=== PATIENT | female | born 1995 | race Caucasian/White ===

== ENCOUNTER 2018-04-18 09:35 | Outpatient (CLI) | payer BC, MEDICAID ==
[~2018-04-18] VITALS: Ht 167.6 cm; Wt 78.5 kg
[~2018-04-18 09:35] MED LIST: CEPH500C PO; CPH250CIP PO; DCS100C PO; IBP600T1 PO; PREN-115 PO; [UNRECOGNIZED DRUG - OTHER] PO
[2018-04-18 09:45] VITALS: BP 103/63
[2018-04-18 10:13] VITALS: BP 103/63
[2018-04-18] MEDS ORDERED: LACTATED RINGERS 1,000 ML IV ONE (10:15)
[2018-04-18 10:36] VITALS: BP 103/63
[2018-04-18 10:50] VITALS: BP 103/63
--- NOTE | 2018-04-19 10:59 | Physician Query-Final Dx ---
TOBI DOWNING 04/19/18 1059: Clinic Account Progress/Dx Physician Query: Please give diagnosis Date of Service Apr 18, 2018 at 09:35 ZONIA ROJAS MD 04/20/18 0728: Clinic Account Progress/Dx DIAGNOSIS: Diagnosis 1. Dehydration 2. IUP at 13 weeks. TOBI DOWNING Apr 19, 2018 10:59 ZONIA ROJAS MD Apr 20, 2018 07:28
== END 2018-04-18 10:55 | disposition home or self-care (01) ==
LOC: WSo 09:35 → LDRP 09:35 → WSo 10:55
PROVIDERS: ATTEND Family Medicine
DX: O99.89 Other specified diseases and conditions complicating pregnancy, childbirth and the puerperium (principal); E86.0 Dehydration; Z3A.13 13 weeks gestation of pregnancy
CPT/HCPCS: 96360

== ENCOUNTER 2018-07-14 22:59 | Outpatient (CLI) | payer BC ==
[~2018-07-14] VITALS: Ht 160 cm; Wt 83.9 kg
[2018-07-14 23:16] VITALS: BP 138/72
[2018-07-14 23:25] LABS: BILIRUBIN,URINE NEGATIVE (NEGATIVE); CLARITY,URINE CLEAR; COLOR,URINE YELLOW; GLUCOSE, URINE (UA) NEGATIVE (NEGATIVE); KETONES,URINE NEGATIVE (NEGATIVE); LEUKOCYTE ESTERASE ,URINE NEGATIVE (NEGATIVE); NITRITE,URINE NEGATIVE (NEGATIVE); PH,URINE 6.5 (5-9); PROTEIN,URINE NEGATIVE (NEGATIVE); UROBILINOGEN,URINE NORMAL (NORMAL)
[2018-07-14 23:36] LABS: BACTERIA,URINE FEW /HPF; WBC,URINE RARE /HPF
[2018-07-14] MEDS ORDERED: AMOXICILLIN 500 MG (POLYMOX) CAP PO STA (23:50)
[2018-07-14] MEDS ORDERED: AMOX500T2 PO (23:57)
[2018-07-14] MEDS ORDERED: AMOXICILLIN 500 MG (POLYMOX) CAP PO ONE (23:58)
== END 2018-07-15 00:06 | disposition home or self-care (01) ==
LOC: WSo 22:59 → LDRP 22:59 → WSo 07-15 00:06
PROVIDERS: ATTEND Family Medicine
DX: O47.03 False labor before 37 completed weeks of gestation, third trimester (principal); Z3A.28 28 weeks gestation of pregnancy
CPT/HCPCS: 81000; 99213

== ENCOUNTER → 2018-08-07 | Outpatient (CLI) | payer BC ==
[~2018-08-07] MED LIST changes: +AMOX500T2 PO
== END ==
LOC: WSo 12:15
PROVIDERS: ATTEND Family Medicine
DX: Z31.82 Encounter for Rh incompatibility status (principal)
CPT/HCPCS: 96372

== ENCOUNTER 2018-09-04 09:18 | Outpatient (CLI) | payer BC, MEDICAID ==
[~2018-09-04] VITALS: Ht 167.6 cm; Wt 86.0 kg
[2018-09-04 09:35] VITALS: BP 112/71
[2018-09-04] MEDS ORDERED: PNV11TAB5 PO (10:01)
[2018-09-04 10:20] LABS: CLARITY,URINE CLEAR; COLOR,URINE YELLOW; GLUCOSE, URINE (UA) NEGATIVE (NEGATIVE); KETONES,URINE 2+ (NEGATIVE); LEUKOCYTE ESTERASE ,URINE 2+ (NEGATIVE); NITRITE,URINE NEGATIVE (NEGATIVE); PH,URINE 6 (5-9); PROTEIN,URINE 2+ (NEGATIVE); UROBILINOGEN,URINE NORMAL (NORMAL)
[2018-09-04] MEDS ORDERED: D5 LR IV SOLUTION 2,000 ML IV ONE (10:20)
[2018-09-04] MEDS ORDERED: BETAMETHASONE ACE/NA PHOS 6 MG/ML (CELESTONE SOLUSPAN) ONE (10:20)
[2018-09-04 10:21] LABS: BACTERIA,URINE MODERATE /HPF; BILIRUBIN,URINE 1+ (NEGATIVE); CALCIUM OXALATE CRYSTALS,UR FEW /LPF; WBC,URINE 25-50 /HPF
[2018-09-04] MEDS ORDERED: D5 LR IV SOLUTION 1,000 ML IV ONE (10:30)
[2018-09-04] MEDS ORDERED: BETAMETHASONE ACE/NA PHOS 6 MG/ML (CELESTONE SOLUSPAN) IM SCH (10:45)
[2018-09-04 10:50] LABS: BASOPHILS % (AUTO) 0 % (0-10); EOSINOPHILS % (AUTO) 0 % (0-10); HEMATOCRIT 33 % (35-52); LYMPHOCYTES # (AUTO) 3.3 X 10^3 (1.0-4.0); LYMPHOCYTES % (AUTO) 25 % (12-44); MEAN CORPUSCULAR HEMOGLOBIN 27 PG (25-34); MEAN CORPUSCULAR HGB CONC 34 G/DL (32-36); MEAN CORPUSCULAR VOLUME 80 FL (80-99); MEAN PLATELET VOLUME 10.1 FL (7.4-10.4); MONOCYTES # (AUTO) 1.5 X 10^3 (0.0-1.0); MONOCYTES % (AUTO) 11 % (0-12); NEUTROPHILS # (AUTO) 8.3 X 10^3 (1.8-7.8); NEUTROPHILS % (AUTO) 63 % (42-75); PLATELET COUNT 168 10^3/uL (130-400); RED BLOOD COUNT 4.09 10^6/uL (4.35-5.85); RED CELL DISTRIBUTION WIDTH 13.6 % (10.0-14.5); WHITE BLOOD COUNT 13.1 10^3/uL (4.3-11.0)
[2018-09-04] MEDS ORDERED: D5 LR IV SOLUTION 1,000 ML IV SCH (11:15)
[2018-09-04] MEDS ORDERED: morphine INJ 10 MG/ML 1ML (SYR OR VIAL) IJ ONE (11:45)
[2018-09-04] MEDS ORDERED: morphine INJ 10 MG/ML 1ML (SYR OR VIAL) ONE (11:45)
[2018-09-04] MEDS ORDERED: morphine INJ 10 MG/ML 1ML (SYR OR VIAL) IVP ONE (11:45)
[2018-09-04 12:00] VITALS: BP 140/74
--- NOTE | 2018-09-05 16:51 | Physician Query-Final Dx ---
MULUGETA CHAN 09/05/18 1651: Clinic Account Progress/Dx Physician Query: Please give diagnosis Date of Service Sep 04, 2018 at 09:18 ZONIA ROJAS MD 09/07/18 1350: Clinic Account Progress/Dx DIAGNOSIS: Diagnosis 1. IUP at 35 weeks 2. Uterine irritability, non-labor MULUGETA CHAN Sep 05, 2018 16:51 ZONIA ROJAS MD Sep 07, 2018 13:50
== END 2018-09-04 14:20 | disposition home or self-care (01) ==
LOC: WSo 09:18 → LDRP 09:18 → WSo 14:20
PROVIDERS: ATTEND Family Medicine
DX: O62.2 Other uterine inertia (principal); Z3A.35 35 weeks gestation of pregnancy
CPT/HCPCS: 36415; 81000; 85025; 86850; 86870; 86900; 86901; 87077; 87088; 87186; 96361; 96372; 96374; 99213

== ENCOUNTER 2018-09-23 18:01 | Inpatient (IN) | payer MEDICAID, OTHER ==
[2018-09-23] VITALS (34 sets, daily range): BP systolic 111–141; BP diastolic 59–94
[~2018-09-23] VITALS: Ht 167.6 cm; Wt 88.5 kg
[~2018-09-23 18:01] MED LIST changes: +PNV11TAB5 PO
--- NOTE | 2018-09-23 18:05 | NUR ---
MEERA LOVE presented to unit via wc from home, accompanied by , with c/o LABOR. MEERA LOVE weighed, gowned, voided, and to bed. EFHM and TOCO applied, VS taken. MEERA LOVE oriented to bed controls, call light, TV, heat, and A/C controls. Patient states has been cedrick today since about 3:30, has had some vaginal bleeding, enough to get underwear bloody. Has been on bedrest since about 18 weeks for labor per her report.
[2018-09-23] MEDS ORDERED: D5 LR IV SOLUTION 1,000 ML IV SCH (18:41)
[2018-09-23] MEDS ORDERED: MINERAL OIL CONCENTRATE 99.9% 15 ML UDC TOP PRN (18:45)
[2018-09-23 18:50] LABS: BASOPHILS % (AUTO) 0 % (0-10); EOSINOPHILS % (AUTO) 0 % (0-10); HEMATOCRIT 34 % (35-52); LYMPHOCYTES % (AUTO) 24 % (12-44); MEAN CORPUSCULAR HEMOGLOBIN 26 PG (25-34); MEAN CORPUSCULAR HGB CONC 32 G/DL (32-36); MEAN CORPUSCULAR VOLUME 80 FL (80-99); MEAN PLATELET VOLUME 10.7 FL (7.4-10.4); MONOCYTES # (AUTO) 1.2 X 10^3 (0.0-1.0); MONOCYTES % (AUTO) 9 % (0-12); NEUTROPHILS # (AUTO) 8.6 X 10^3 (1.8-7.8); NEUTROPHILS % (AUTO) 67 % (42-75); PLATELET COUNT 146 10^3/uL (130-400); RED BLOOD COUNT 4.27 10^6/uL (4.35-5.85); RED CELL DISTRIBUTION WIDTH 14.3 % (10.0-14.5); WHITE BLOOD COUNT 12.8 10^3/uL (4.3-11.0)
[2018-09-23] MEDS ORDERED: SUFENTA 0.6MCG/ML BUPIVA 0.125 100 ML ONE (19:03)
[2018-09-23] MEDS ORDERED: LACTATED RINGERS 1,000 ML IV SCH (20:06)
[2018-09-23] MEDS ORDERED: OXYTOCIN/NORMAL SALINE 500 ML IV ONE (20:11)
[2018-09-23] MEDS ORDERED: diphenhydrAMINE 50 MG/ML INJ (BENADRYL) IV PRN (20:15)
[2018-09-23] MEDS ORDERED: METOCLOPRAMIDE INJ 10 MG/2 ML (REGLAN) IV PRN (20:15)
[2018-09-23] MEDS ORDERED: EPIDURAL (SUFENTA 0.6MCG/ML BUPIVA 0.125%) 100 ML BAG EPI SCH (20:15)
[2018-09-23] MEDS ORDERED: ONDANSETRON 4 MG/2 ML (SDV) Z0FRAN IV PRN (20:15)
[2018-09-23] MEDS ORDERED: NALOXONE 0.4 MG/ML 1 ML (NARCAN) VIAL IV PRN ×2 (20:15)
[2018-09-23] MEDS ORDERED: OXYTOCIN/NORMAL SALINE 500 ML IV SCH ×2 (20:19→23:24)
--- NOTE | 2018-09-23 20:19 | History & Physical-OB ---
OB - Chief Complaint & HPI Date/Time Date of Admission: Date of Admission: Sep 23, 2018 at 18:33 Date seen by a Provider: Sep 23, 2018 Time Seen by a Provider: 20:10 Chief Complaint/History OB-Reason for Admission/Chief: Onset of Labor Hx : 2 Hx Para: 1 Expected Date of Delivery: Oct 09, 2018 Gestational Age in Weeks: 37 Gestational Age in Days: 5 Admission Nurse Assessment Rev: Yes History of Labs GBS negative at 33 weeks. Allergies and Home Medications Allergies Coded Allergies: latex (Verified Allergy, Unknown, 09/04/18) Home Medications [id number]/FA/Omega3/Dha/Fish Oil 1 Each Tab.chew, 2 EACH PO DAILY, (Reported) Patient Home Medication List Home Medication List Reviewed: Yes OB - History Hx of Present Care: Yes Ultrasounds: Normal mid trimester US Obstetrical Complications: Other ( contractions) Medical Complications: None Delivery History Hx Blood Disorders: No Adverse Rxn to Tranfusion: No Patient Past Medical History no chronic medical problems Social History/Family History HIV/AIDS: No Recent Infectious Disease Expo: No Sexually Transmitted Disease: No Alcohol Use: Denies Use Recreational Drug Use: No Immunizations Tetanus Booster (TDap): Less than 5yrs Date of Influenza Vaccine: Sep 12, 2018 OB - Admission Exam Physical Exam Vitals: Vital Signs 09/23/18 18:10 Temp 98.0 Pulse 96 Resp 18 B/P (MAP) 130/81 (97) HEENT: Moist Membranes Heart: Rhythm Normal Lungs: Clear Abdomen: Gravid Cervical Dilatation: 5cm Effacement: 75% Station: -3 Membranes: Ruptured (AROM) Amniotic Fluid: Clear Heart Rate: 140's Accelerations: Accelerations Present Decelerations: No Decelerations Short Term Variability: Present Long-Term Variability: Average (6-25) Contractions on Admission: < 5 Minutes Apart Intensity: Moderate Labs Laboratory Tests Test 09/23/18 18:41 Range/Units White Blood Count 12.8 H 4.3-11.0 10^3/uL Red Blood Count 4.27 L 4.35-5.85 10^6/uL Hemoglobin 11.0 L 11.5-16.0 G/DL Hematocrit 34 L 35-52 % Mean Corpuscular Volume 80 80-99 FL Mean Corpuscular Hemoglobin 26 25-34 PG Mean Corpuscular Hemoglobin Concent 32 32-36 G/DL Red Cell Distribution Width 14.3 10.0-14.5 % Platelet Count 146 130-400 10^3/uL Mean Platelet Volume 10.7 H 7.4-10.4 FL Neutrophils (%) (Auto) 67 42-75 % Lymphocytes (%) (Auto) 24 12-44 % Monocytes (%) (Auto) 9 0-12 % Eosinophils (%) (Auto) 0 0-10 % Basophils (%) (Auto) 0 0-10 % Neutrophils # (Auto) 8.6 H 1.8-7.8 X 10^3 Lymphocytes # (Auto) 3.0 1.0-4.0 X 10^3 Monocytes # (Auto) 1.2 H 0.0-1.0 X 10^3 Eosinophils # (Auto) 0.0 0.0-0.3 10^3/uL Basophils # (Auto) 0.0 0.0-0.1 10^3/uL OB - Assessment/Plan/Diagnosis Assessment Assessment: active labor (at 37w5d) Admission Dx 1. IUP at term 37w5d in labor Admission Status: Inpatient Order (span 2 midnights) Reason for Inpatient Admission: L&D Plan Plan: Expectant Management Other Plan -patient desires epidural and this has been placed -pitocin as necessary ZONIA ROJAS MD Sep 23, 2018 20:19
[2018-09-23] MEDS ORDERED: CATHETER FLUSH 10 ML SYR IV SCH (22:00)
[2018-09-23] MEDS ORDERED: MEPIVACAINE (CARBOCAINE) 2% 50 ML VIAL ONE (22:39)
--- NOTE | 2018-09-23 23:23 | OB Labor & Delivery Record ---
L&D History Date of Service Date of Service: Sep 23, 2018 History Expected Date of Delivery: Oct 09, 2018 Gestational Age in Weeks: 37 Hx : 2 Hx Para: 1 Complications Events: Routine care Operative Indications (Cesarea: N/A-Vaginal Delivery Intrapartal Events: None L&D Stage1 Stage One Onset of Labor - Date: Sep 23, 2018 Onset of Labor - Time: 15:00 Monitors and Tracing Monitor Mode: Internal Heart Rate: 120 Monitor Accelerations: Uniform Monitor Decelerations: None Station: -1 Halfway Variability: Average (6-10) Short Term Variability: Present Presentation: Vertex Vital Signs VS - Last 72 Hours, by Label 09/23/18 09/23/18 09/23/18 09/23/18 18:10 19:15 19:20 19:25 Temp 98.0 Pulse 96 87 90 103 Resp 18 18 18 18 B/P (MAP) 130/81 (97) 111/71 (84) 140/75 (96) 137/78 (97) Pulse Ox 100 100 09/23/18 09/23/18 09/23/18 09/23/18 19:30 19:35 19:40 19:45 Pulse 90 82 82 87 Resp 18 18 18 18 B/P (MAP) 135/77 (96) 137/80 (99) 130/80 (97) 127/67 (87) Pulse Ox 100 100 100 100 09/23/18 09/23/18 09/23/18 09/23/18 19:50 19:55 20:00 20:05 Pulse 82 89 89 86 Resp 18 18 18 18 B/P (MAP) 129/66 (87) 116/59 (78) 129/75 (93) 123/74 (90) Pulse Ox 100 100 100 100 09/23/18 09/23/18 09/23/18 09/23/18 20:10 20:15 20:20 20:25 Pulse 103 82 82 86 Resp 18 18 18 18 B/P (MAP) 122/94 (103) 141/63 (89) 121/69 (86) 121/67 (85) Pulse Ox 100 100 100 100 09/23/18 09/23/18 09/23/18 09/23/18 20:30 20:35 20:40 20:45 Pulse 96 83 83 76 Resp 18 18 18 18 B/P (MAP) 116/71 (86) 128/80 (96) 130/74 (92) 131/70 (90) Pulse Ox 100 100 100 100 09/23/18 09/23/18 09/23/18 09/23/18 20:50 20:55 21:00 21:15 Pulse 82 75 75 83 Resp 18 18 18 18 B/P (MAP) 125/73 (90) 130/76 (94) 132/76 (94) 133/71 (91) Pulse Ox 100 100 100 100 09/23/18 09/23/18 09/23/18 09/23/18 21:30 21:45 22:00 22:20 Temp 97.0 Pulse 93 100 88 87 Resp 18 18 18 18 B/P (MAP) 129/79 (96) 119/67 (84) 127/78 (94) 129/77 (94) Pulse Ox 100 100 100 100 Signs of Distress by FHT Signs of Distress no Rupture of Membranes Spontaneous Ruture of Membrane: No Amniotic Membrane Rupture Time: 2008 Amniotic Membrane Fluid Desc.: Clear Induction/Anesthesia Epidural Cath Placement - Time: 1932 L&D Stage2 Stage Two Stage II Date: Sep 23, 2018 Stage II Time: 22:59 Monitors and Tracing Monitor Mode: Internal Heart Rate: 120 Monitor Accelerations: Uniform Monitor Decelerations: Early Halfway Variability: Average (6-10) Short Term Variability: Present Position: Left Occiput Anterior Presentation: Vertex Signs of Distress by FHT Signs of Distress no Cord Descript/Complications Cord Vessel Description: 3 Vessels Delivery Type Infant Delivery Method: Spontaneous Vaginal Anterior Shoulder: Left Episiotomy/Perineal Laceration Episiotomy Description: Midline Sutures Used: Vicryl Condition of Delivery 1 minute Comment: 9 5 minute Comment: 9 Condition of Infant Condition of Infant: Living Exam: No Observed Abnormalities Resuscitation Resuscitation: N/A - Spontaneous Resp L&D Stage3 Stage Three Stage III Date: Sep 23, 2018 Stage III Time: 23:04 Pictocin Pitocin Administration mu/min: 6 Pitocin ml/hr: 6 Placenta Delivery Placenta Delivery: Spontaneous Delivery Summary Summary Estimated blood loss (mL): 200 Condition of Delivery Examined: Cervix Examined Post Hemorrhage: No Intervention Required none ZONIA ROJAS MD Sep 23, 2018 23:23
[2018-09-23] MEDS ORDERED: BENZOCAINE/MENTHOL (DERMOPLAST) 56 ML CAN TP PRN (23:30)
[2018-09-23] MEDS ORDERED: MEASLES,MUMPS,RUBELLA 1 EA INJ SQ ONE (23:30)
[2018-09-23] MEDS ORDERED: TETANUS,DIPTH,PERTUSS P/F (BOOSTRIX) 0.5 ML VIAL IM ONE (23:30)
[2018-09-24] VITALS (7 sets, daily range): BP systolic 93–127; BP diastolic 49–76
[2018-09-24] MEDS: IBUPROFEN 600 MG (MOTRIN) TAB PO SCH ×4 (00:13→18:22)
[2018-09-24] MEDS: DOCUSATE SODIUM 100 MG (COLACE) CAP PO SCH (00:34)
--- NOTE | 2018-09-24 02:06 | NUR ---
pt placed in w'c and taken to 312. pt denies urge to void. pt assisted to bed. orientated to room. info papers discussed. pt denies any needs at this time. s/o at bedside.
--- NOTE | 2018-09-24 04:00 | NUR ---
Pt assisted to the bathroom. positive void. pericare completed. pad changed. pt assisted back to bed.
[2018-09-24] MEDS: HYDROcodone/APAP 5 MG/325 MG (LORTAB) TAB PO PRN ×3 (05:20→20:06)
[2018-09-24] MEDS: WITCH HAZEL(TUCKS) 40 EA JAR TOP PRN (05:20)
[2018-09-24 05:39] LABS: BASOPHILS % (AUTO) 0 % (0-10); EOSINOPHILS # (AUTO) 0.1 10^3/uL (0.0-0.3); EOSINOPHILS % (AUTO) 0 % (0-10); HEMATOCRIT 27 % (35-52); HEMOGLOBIN 8.9 G/DL (11.5-16.0); LYMPHOCYTES % (AUTO) 23 % (12-44); MEAN CORPUSCULAR HEMOGLOBIN 26 PG (25-34); MEAN CORPUSCULAR HGB CONC 33 G/DL (32-36); MEAN CORPUSCULAR VOLUME 80 FL (80-99); MEAN PLATELET VOLUME 10.7 FL (7.4-10.4); MONOCYTES % (AUTO) 11 % (0-12); NEUTROPHILS # (AUTO) 11.3 X 10^3 (1.8-7.8); NEUTROPHILS % (AUTO) 65 % (42-75); PLATELET COUNT 131 10^3/uL (130-400); RED CELL DISTRIBUTION WIDTH 14.4 % (10.0-14.5); WHITE BLOOD COUNT 17.3 10^3/uL (4.3-11.0)
[2018-09-24] MEDS ORDERED: CATHETER FLUSH 10 ML SYR IV SCH (06:00)
--- NOTE | 2018-09-24 07:00 | NUR ---
REPORT FROM AMBROSIO LORD.
--- NOTE | 2018-09-24 08:30 | NUR ---
INITIAL ASSESSMENT COMPLETED AT BEDSIDE, VSS, SEE INTERVENTIONS FOR DETAILED ASSESSMENTS, PLAN OF CARE EXPLAINED WILL MONITOR CLOSELY.
--- NOTE | 2018-09-24 08:55 | NUR ---
DR LANGSTON HERE NEW ORDERS RECEIVED.
--- NOTE | 2018-09-24 09:40 | NUR ---
IV DC'D PER PT REQUEST.
--- NOTE | 2018-09-24 11:45 | NUR ---
SCHEDULED MOTRIN GIVEN PO FOR CRAMPING.
--- NOTE | 2018-09-24 13:51 | Anesthesia-Regional Post-Op ---
Regional Patient Condition Mental Status: Alert, Oriented x3 Circulation: Same as Pre-Op Headache: Absent Sensation: Full Recovery Motor Block: Absent Post Op Complications Complications None Follow Up Care/Instructions Patient Instructions None needed. Anesthesia/Patient Condition Patient is doing well, no complaints, stable vital signs, no apparent adverse anesthesia problems. No complications reported per nursing. AUGUSTUS CHOU CRNA Sep 24, 2018 13:50
--- NOTE | 2018-09-24 15:36 | NUR ---
VSS, PT C/O CRAMPING, LORTAB X 1 TABLET GIVEN PO.
--- NOTE | 2018-09-24 16:25 | Progress Note (SOAP) ---
Subjective Date Seen by a Provider: Sep 24, 2018 Time Seen by a Provider: 16:15 Subjective/Events-last exam Patient voices no complaints. Having mild cramping and helped with ibuprofen and lortab. No abnormal vaginal bleeding. Objective Exam Vital Signs Date Time Temp Pulse Resp B/P (MAP) Pulse Ox O2 Delivery O2 Flow Rate FiO2 09/24/18 08:30 98.9 85 18 98/55 (69) 98 Room Air 09/24/18 03:52 97.3 81 18 93/49 (64) 100 09/24/18 00:50 97.1 70 18 121/64 (83) 100 09/24/18 00:35 85 18 122/75 (91) 100 09/24/18 00:20 73 18 127/76 (93) 100 09/24/18 00:05 97.0 75 18 127/76 (93) 100 09/23/18 23:50 77 18 123/86 (98) 100 09/23/18 23:35 89 18 125/76 (92) 100 09/23/18 23:20 88 18 135/68 (90) 100 09/23/18 23:05 91 18 138/63 (88) 100 09/23/18 22:50 80 18 139/82 (101) 100 09/23/18 22:35 90 18 138/77 (97) 100 09/23/18 22:20 97.0 87 18 129/77 (94) 100 09/23/18 22:00 88 18 127/78 (94) 100 09/23/18 21:45 100 18 119/67 (84) 100 09/23/18 21:30 93 18 129/79 (96) 100 09/23/18 21:15 83 18 133/71 (91) 100 09/23/18 21:00 75 18 132/76 (94) 100 09/23/18 20:55 75 18 130/76 (94) 100 09/23/18 20:50 82 18 125/73 (90) 100 09/23/18 20:45 76 18 131/70 (90) 100 09/23/18 20:40 83 18 130/74 (92) 100 09/23/18 20:35 83 18 128/80 (96) 100 09/23/18 20:30 96 18 116/71 (86) 100 09/23/18 20:25 86 18 121/67 (85) 100 09/23/18 20:20 82 18 121/69 (86) 100 09/23/18 20:15 82 18 141/63 (89) 100 09/23/18 20:10 103 18 122/94 (103) 100 09/23/18 20:05 86 18 123/74 (90) 100 09/23/18 20:00 89 18 129/75 (93) 100 09/23/18 19:55 89 18 116/59 (78) 100 09/23/18 19:50 82 18 129/66 (87) 100 09/23/18 19:45 87 18 127/67 (87) 100 09/23/18 19:40 82 18 130/80 (97) 100 09/23/18 19:35 82 18 137/80 (99) 100 09/23/18 19:30 90 18 135/77 (96) 100 09/23/18 19:25 103 18 137/78 (97) 100 09/23/18 19:20 90 18 140/75 (96) 100 09/23/18 19:15 87 18 111/71 (84) 09/23/18 18:10 98.0 96 18 130/81 (97) Capillary Refill : General Appearance: No Apparent Distress Results Lab Laboratory Tests 09/23/18 18:41: White Blood Count 12.8H, Red Blood Count 4.27L, Hemoglobin 11.0L, Hematocrit 34L , Mean Corpuscular Volume 80, Mean Corpuscular Hemoglobin 26, Mean Corpuscular Hemoglobin Concent 32, Red Cell Distribution Width 14.3, Platelet Count 146, Mean Platelet Volume 10.7H, Neutrophils (%) (Auto) 67, Lymphocytes (%) (Auto) 24 , Monocytes (%) (Auto) 9, Eosinophils (%) (Auto) 0, Basophils (%) (Auto) 0, Neutrophils # (Auto) 8.6H, Lymphocytes # (Auto) 3.0, Monocytes # (Auto) 1.2H, Eosinophils # (Auto) 0.0, Basophils # (Auto) 0.0 09/24/18 05:20: White Blood Count 17.3H, Red Blood Count 3.40L, Hemoglobin 8.9L, Hematocrit 27L , Mean Corpuscular Volume 80, Mean Corpuscular Hemoglobin 26, Mean Corpuscular Hemoglobin Concent 33, Red Cell Distribution Width 14.4, Platelet Count 131, Mean Platelet Volume 10.7H, Neutrophils (%) (Auto) 65, Lymphocytes (%) (Auto) 23 , Monocytes (%) (Auto) 11, Eosinophils (%) (Auto) 0, Basophils (%) (Auto) 0, Neutrophils # (Auto) 11.3H, Lymphocytes # (Auto) 4.0, Monocytes # (Auto) 2.0H, Eosinophils # (Auto) 0.1, Basophils # (Auto) 0.0 Assessment/Plan Assessment/Plan Assess & Plan/Chief Complaint 1. S/P day 1 -Routine PP care orders -Plan on dc on 09/25/2018 Clinical Quality Measures DVT/VTE Risk/Contraindication: Risk Factor Score Per Nursin RFS Level Per Nursing on Admit: 1=Low/No VTE PPX ZONIA ROJAS MD Sep 24, 2018 16:25
[2018-09-25] MEDS ORDERED: DOCUSATE SODIUM 100 MG (COLACE) CAP PO ONE (00:27)
[2018-09-25 00:32] VITALS: BP 115/56
[2018-09-25 05:40] VITALS: BP 117/77
[2018-09-25] MEDS: IBUPROFEN 600 MG (MOTRIN) TAB PO SCH ×3 (05:41→19:42)
--- NOTE | 2018-09-25 09:10 | NUR ---
PT IN NURSERY TO HOLD AND FEED INFANT.
[2018-09-25] MEDS: DOCUSATE SODIUM 100 MG (COLACE) CAP PO SCH (09:43)
[2018-09-25] MEDS ORDERED: TETANUS,DIPTH,PERTUSS P/F (BOOSTRIX) 0.5 ML VIAL IM ONE (09:46)
[2018-09-25] MEDS: HYDROcodone/APAP 5 MG/325 MG (LORTAB) TAB PO PRN ×2 (09:52→17:42)
--- NOTE | 2018-09-25 09:53 | NUR ---
TDAP GIVEN IN LEFT DELTOID. SITE CLEAR. IN NURSERY AT THIS TIME. GOOD INTERACTION NOTED. LORTAB GIVEN FOR C/O CRAMPING AND SORE BOTTOM.
[2018-09-25 12:00] VITALS: BP 115/63
--- NOTE | 2018-09-25 12:00 | NUR ---
DOING WELL. IN THE NURSERY AT INTERVALS.
[2018-09-25] MEDS ORDERED: DIBUCAINE (NUPERCAINAL) 1% OINT 30 GM ONE (12:45)
[2018-09-25] MEDS ORDERED: DIBUCAINE (NUPERCAINAL) 1% OINT 30 GM TOP PRN (13:00)
--- NOTE | 2018-09-25 14:53 | Discharge Summary ---
Diagnosis/Chief Complaint Date of Admission Sep 23, 2018 at 18:33 Date of Discharge Discharge Date: Sep 25, 2018 Discharge Time: 15:00 Admission Diagnosis Admission Diagnosis 1. IUP at 37w5d Discharge Diagnosis 1. IUP at 37w5d 2. Anemia-post delivery Reason Hospital Visit 23 yo G2 now T2 who initially presented to L&D with uterine contractions with full labor. EDC was mpted tp be on Oct 09, 2018. Discharge Summary-OBS Procedures 1. Epidural per anesthesia 2. 3. Repair of MLE Discharge Physical Examination Allergies: Coded Allergies: latex (Verified Allergy, Unknown, 09/04/18) Vitals & I&Os Vital Signs Date Time Temp Pulse Resp B/P (MAP) Pulse Ox O2 Delivery O2 Flow Rate FiO2 09/25/18 05:40 98.9 78 20 117/77 (90) 98 Room Air General Appearance: No Acute Distress Respiratory: Clear to Auscultation Cardiovascular: Regular Rate Abdominal: Soft (with uterus firm) Hospital Course see PN Discharge Instructions to patient/family Please see electronic discharge instructions given to patient. Discharge Medications Reviewed and agree with Discharge Medication list on patient's Discharge Instruction sheet Clinical Quality Measures DVT/VTE Risk/Contraindication: Risk Factor Score Per Nursin RFS Level Per Nursing on Admit: 1=Low/No VTE PPX ZONIA ROJAS MD Sep 25, 2018 14:53
[2018-09-25] MEDS ORDERED: ACHD5005 PO (14:54)
[2018-09-25] MEDS ORDERED: DOCU100C37 PO (14:54)
[2018-09-25] MEDS ORDERED: IBUP-844 PO (14:54)
--- NOTE | 2018-09-25 14:57 | Discharge Inst-Women's Service ---
Discharge Inst-Women's Serv Depart Medication/Instructions New, Converted or Re-Newed RX: RX on Chart Consults/Follow Up Additional Follow Up: Yes (Dr Rojas in 6 weeks.) Activity Activity: Activity as Tolerated Driving Instructions: No Driving for 1 Week Nothing Inside Vagina: No [place] (for 6 weeks.) Diet Discharge Diet: Regular Diet Return to The Hospital For: as below Symptoms to Report to : Bleeding Excessive, Fever Over 101 Degrees F, Urination Difficulty, Vaginal Discharge Foul For Any Problems or Questions: Contact Your Physician ZONIA ROJAS MD Sep 25, 2018 14:56
--- NOTE | 2018-09-25 15:00 | NUR ---
DR. ROJAS HERE TO SEE PT. PLAN FOR ROOMING IN AFTER RECEIVES RHOGAM. RXS GIVEN TO S.O. TO SEE IF ANY PHARMACY AVAILABLE.
[2018-09-25] MEDS: WITCH HAZEL(TUCKS) 40 EA JAR TOP PRN (17:42)
[2018-09-25 19:30] VITALS: BP 118/76
--- NOTE | 2018-09-25 19:50 | NUR ---
RHOGAM GIVEN IM IN RIGHT VG SITE. SITE CLEAR.
--- NOTE | 2018-09-25 21:00 | NUR ---
Pt. remains in [facility] visiting .
--- NOTE | 2018-09-25 22:20 | NUR ---
Pt. just arrived back to from [facility], D/C instructions given & explained, pt. verbalized understanding & signed. POC reviewed & boarder status w/pt & SO, both verbalized understanding & very appreciative, pt. denies needs. Pt. previously received & had slate picker Rx, has in her possession. Will D/C pt. to in as still admitted in [facility].
== END 2018-09-25 22:20 | disposition home or self-care (01) | DRG 807 ==
LOC: WSo 18:01 → LDRP 18:01 → WSo 18:33 → LDRP 09-24 05:30
PROVIDERS: ADMIT Family Medicine; ATTEND Family Medicine
PROC: 10E0XZZ Delivery of Products of Conception, External Approach (ICD-10-PCS; principal; 2018-09-23)
PROC: 0W8NXZZ Division of Female Perineum, External Approach (ICD-10-PCS; 2018-09-23)
DX: O90.81 Anemia of the puerperium (principal); D64.9 Anemia, unspecified; Z37.0 Single live birth; Z3A.37 37 weeks gestation of pregnancy
CPT/HCPCS: 36415; 83033; 85025; 86850; 86900; 86901; 90715; 99212

== ENCOUNTER 2020-01-03 23:21 | Emergency (ER) | payer SELFPAY ==
[~2020-01-03] VITALS: Ht 167 cm; Wt 79.0 kg
[~2020-01-03 23:21] MED LIST changes: +ACHD5005 PO; +DOCU100C37 PO; +IBUP-844 PO
--- OUTSIDE RECORDS SUMMARY | 2020-01-03 23:28 | XMS REPORT ---
Author Author [employer]. Organization [facility] Address [address] [address] Care Team Providers Care Ic Design Engineer Name Role Phone JOHN WIGGINS Unavailable Unavailable [facility] Unavailable [phone] ODALIS LANGSTON Unavailable EILEEN MANLEY Unavailable Unavailable XAVIER GUERRA Unavailable Unavailable ALISHA ENCINAS Unavailable Unavailable HILDA BONE Unavailable Unavailable SCHUYLER DE LA VEGA Unavailable Unavailable TRAE BRITT Unavailable Unavailable NAHUN ROJAS Unavailable [facility] Unavailable TACOS DWYER Unavailable TACOS DWYER Unavailable NAHUN ROJAS Unavailable NAHUN ROJAS MD Unavailable Unavailable NAHUN ROJAS MD Unavailable Unavailable AMADA SOSA MD Unavailable Unavailable AMADA SOSA MD Unavailable Unavailable SHANNON BROWN DO Unavailable Unavailable ANIRUDH ALVAREZ Unavailable Unavailable ROLLY SIN, KAT Tamayo Unavailable Unavailable NAHUN ROJAS Unavailable Migration, Doctor Unavailable Unavailable KAYLA ERWIN MD Unavailable Unavailable Migration, Doctor Unavailable Unavailable LAURENCE FERNÁNDEZ Unavailable Migration, Doctor Unavailable Unavailable zzHEIMAN, TRAE Unavailable zzHEIMAN, TRAE Unavailable zzHEIMAN, TRAE Unavailable Allergies Normalized Allergy Reported Date of Reaction(s) Care Provider Facility Allergy Type classification allergen Allergy Onset DA (20 Unclassified No Known Drug 11-05-2012 - no information KAT LOFTON , Not Available sources.) Allergies (53903) Medications Medication Ingredient Drug Dose Dates Status Sig Sig Care Class(es) (Normalized) (Original) Provid er no Acetaminoph Opioid 09-25-19 Complete take 1 Acetaminophe Nahun information en / Agonist 19 d tablet by n/Hydrocodon J (1 source.) HYDROcodone mouth every e Bitart Didier four hours (Hydrocodone (no as needed /Acetaminoph phone) for pain en 5/325MG Tablet) 1 Tab Tab 1 Tab ORAL Every 4HRS as needed for Pain-Moderat e 20 Tab 09/25/18 no Bladder Inf no 02-13-20 Complete take 1 Bladder Inf ( no information Med , 1 Tab information 13 d tablet by Med , 1 Tab phone) (3 Oral mouth three Oral Three sources.) times daily Times A Day Discontinued no Cephalexin no 05-07-20 Complete no Cephalexin (no information Hcl (Keflex information 13 d information Hc l (Keflex phone) (3 Capsule) Capsule) 250 sources.) 250 Mg Cap, Mg Cap, 500 500 Mg Oral Mg Oral Discontinued no Cephalexin no 05-10-20 Complete take 500 Cephalexin G retch information Monohydrate information 13 - d capsules by Mo nohydrate en L (3 (Cephalexin 06-05-20 mouth three (Cephalexin) [place] in sources.) ) 500 Mg 16 times daily 500 Mg (no Capsule, 1 Capsule, 1 phone) Each Oral Each Oral Three Times A Day 05/10/13 Discontinued no Docusate no 05-08-20 Complete take 1 Docusate Nahun information Sodium information 13 - d capsule by Sodium J (3 (Colace 06-05-20 mouth twice (Colace Didier sources.) Capsule) 16 daily Capsule) 100 (no 100 Mg Cap, Mg Cap, 100 phone) 100 Mg Oral Mg Oral Twice A Day 05/08/13 Discontinued no Ibuprofen no 600 mg 05-08-20 Complete take 1 Ibuprofe n Nahun information (Motrin) information 13 - d tablet by (Motrin ) 600 J (3 600 Mg Tab, 06-05-20 mouth every Mg Tab, 600 Didier sources.) 600 Mg Oral 16 six hours Mg Oral (no Every 6 phone) Hours 05/08/13 Discontinued no [id number]/Fa/O no Complete take 2 Lur854/Fa/Om (n o information mega3/Dha/F information d tablets by ega3/D vail/Fis phone) (1 source.) martine Oil mouth once h Oil ( daily, then ( Gummies) 1 take 1 Gummies) 1 Each tablet by Each Tab.chew mouth Tab.chew 2 Each ORAL Daily no no 06-05-20 Complete no Vit (no information Vit information 16 d information #108/Ir on/Fa phone) (3 #108/Iron/F ( sources.) a ( One Tablet) One Tablet) 1 Each 1 Each Tablet, 1 Tablet, 1 Each Oral Each Oral Daily Discontinued Problems Active Problems Problem Normalized Date of Normalized Normalized Provider Fac ility Classification Problem(s) Problem Problem Problem Sta tus Onset/Resoluti Duration on Other Anemia of the Chronic Active NAHUN ROJAS , Not Available complications puerperium (60014) of ; puerperium affecting management of mother (4 sources.) Deficiency and Anemia, Episodic Active NAHUN ROJAS , Not Available other anemia unspecified (23468) (4 sources.) Other Congenital or Episodic Active KAT LOFTON , Not Available complications acquired MD (08773) of abnormality of (3 sources.) vagina, antepartum condition or complication Fluid and Dehydration Episodic Active AMADA SOSA Not Av ailable electrolyte , (49516) disorders (8 sources.) Residual Edema Episodic Active ANIRUDH Not Available codes; FRANKI MOON (67441) unclassified (3 sources.) Early or False labor Episodic Active KAYLA ERWIN Not Av ailable threatened before 37 , (82740) labor (8 completed sources.) weeks of gestation, third trimester Other Infections of Episodic Active NAHUN ROJAS , Not Available complications genitourinary (56852) of tract in (3 sources.) , antepartum condition or complication Other Infections of Episodic Active ANIRUDH Not Avai lable complications genitourinary FRANKI MOON (22516) of ; tract in puerperium , affecting management of condition or mother (3 complication sources.) Residual Need for Episodic Active NAHUN ROJAS , Not Avai lable codes; prophylactic (66881) unclassified immunotherapy (6 sources.) Immunizations Need for Episodic Active NAHUN ROJAS , Not Available and screening prophylactic MD (99366) for infectious vaccination disease (3 and sources.) inoculation against diphtheria-tet anus-pertussis , combined [DTP] [DTaP] Other Normal Episodic Active NAHUN ROJAS , Not Avai lable and delivery (13391) delivery Translations: including [ normal (9 DELIVER-SINGLE sources.) LIVEBORN, SINGLE LIVE ] Other female Other Chronic Active AMADA SOSA Not Av ailable genital specified , (62717) disorders (4 abnormal sources.) uterine and vaginal bleeding Other Other Episodic Active NAHUN ROJAS , Not Avai lable complications specified () of complications (3 sources.) of , antepartum condition or complication Other Other Episodic Active ANIRUDH Not Available complications specified FRANKI MOON (51185) of ; complications puerperium of , affecting management of condition or mother (3 complication sources.) Other Other Episodic Active NAHUN ROJAS , Not Avai lable complications specified (70448) of diseases and (10 sources.) conditions complicating , childbirth and the puerperium Other female Other Episodic Active KAT LOFTON , Not A vailable genital specified (55276) disorders (3 noninflammator sources.) y disorders of vagina distress Other uterine Episodic Active NAHUN ROJAS , Not Available and abnormal inertia (80555) forces of labor (2 sources.) Other Swelling of Episodic Active ANIRUDH Not Availa ble connective limb FRANKI MOON (23544) tissue disease (3 sources.) Other female Unspecified Episodic Active KAT LFOTON , No t Available genital symptom (03573) disorders (5 associated sources.) with female genital organs Urinary tract Urinary tract Episodic Active NAHUN ROJAS , Not Available infections (6 infection, (25255) sources.) site not specified Other Uterine size Episodic Active NAHUN ROJAS , Not Available complications date (96241) of discrepancy, (5 sources.) antepartum condition or complication Unclassified no information no information Active NAHUN GONZALEZ [facility] [place] (13 sources.) [id number] [facility] (79579) Past or Other Problems Problem Normalized Date of Normalized Normalized Provider Fac ility Classification Problem(s) Problem Problem Problem Sta tus Onset/Resoluti Duration on Unclassified 13 weeks no information no information NAHUN CANNON N , Not Available (4 sources.) gestation of () Unclassified 19 weeks no information no information KAYLA GRUBBS CH Not Available (10 sources.) gestation of , (82197) Translations: [ 28 WEEKS GESTATION OF ] Residual 28 weeks no information no information KAYLA ERWIN [facility] Via codes; gestation of MD [facility] unclassified Hospital - (4 sources.) [place] (64838) Residual 35 weeks no information no information NAHUN ROJAS , Not Available codes; gestation of (79515) unclassified (2 sources.) Residual 37 weeks no information no information NAHUN ROJAS , Not Available codes; gestation of (75634) unclassified (4 sources.) Abdominal pain Pelvic and no information no information KAYLA ERWIN Not Available (6 sources.) perineal pain , (96576) Procedures Procedure Normalized Procedure Procedure Result Performer Facility Date DELIVERY OF PRODUCTS no information no name (no phone) Not A vailable (61139) OF CONCEPTION, EXTE DIVISION OF FEMALE no information no name (no phone) Not [place] ilable (98819) PERINEUM, EXTERNAL AP Episiotomy no information no name (no phone) Not Availab le (95520) Other genitourinary no information no name (no phone) Not Av ailable (22019) instillation Immunizations Normalized Immunization Date Notes Care Provider Facili ty Immunization NEGATED: Highlighted 09-24-2018 no information NAHUN ROJAS [address] [place] [address] row has not [facility] occurred! (43741) measles, mumps and rubella virus vaccine tetanus toxoid, 09-25-2018 - no information no name Not Av ailable reduced diphtheria 09-25-2018 (98543) toxoid, and acellular pertussis vaccine, adsorbed vaccine no information NAHUN ROJAS [address] [address] [facility] Translations: [ [place] (86127) vaccine] Results Test Name Value Interpretation Reference Range Date Time Fa cility (Normalized) (Normalized) (Medline Reference) No panel information on null no information no information (no code) Via [facility] (31215) venous blood hemoglobin measurement (mass/volume) on 2018-09-24 Hemoglobin mass 8.9 g/dL (L) 12.1 - 17.2 g/dL [facility] Via conc (Bld) [facility] (31806) blood neutrophils automated count (number/volume) on 2018-09-24 Neutrophils Auto 11.3 10*3/uL (H) 1.7 - 7 10*3/uL [facility] Via #/vol (Bld) [facility] (15388) blood monocytes/100 leukocytes on 2018-09-24 Monocytes/100 11 % (no code) 2 - 8 % [place] [facility] WBC Auto (Bld) [facility] (51121) blood monocytes automated count (number/volume) on 2018-09-24 Monocytes Auto 2.0 10*3/uL (H) 0.3 - 0.9 [place] [facility] #/vol (Bld) 10*3/uL [facility] (94459) blood lymphocytes automated count (number/volume) on 2018-09-24 Lymphocytes Auto 4.0 10*3/uL (no code) 0.9 - 2.9 [place] [facility] #/vol (Bld) 10*3/uL [facility] (95146) blood leukocytes automated count (number/volume) on 2018-09-24 WBC Auto #/vol 17.3 10*3/uL (H) 3.5 - 10.5 [place] [facility] (Bld) 10*3/uL [facility] (53083) blood hematocrit (volume fraction) on 2018-09-24 Hematocrit Auto 27 % (L) 36.1 - 50.3 % [facility] Volume Fraction [facility] ([facility]) (28192) blood erythrocytes automated count (number/volume) on 2018-09-24 RBC Auto #/vol 3.40 10*6/uL (L) 4.2 - 6.1 [place] [facility] (Bld) 10*6/uL [facility] (37997) automated erythrocyte mean corpuscular volume on 2018-09-24 MCV Auto Entitic 80 fL (no code) 80 - 100 fL [facility] volume (RBC) [facility] (79603) automated erythrocyte mean corpuscular hemoglobin concentration measurement (mass/volume) on 2018-09-24 MCHC Auto mass 33 g/dL (no code) 32 - 36 g/dL [place] [facility] conc (RBC) [facility] (98249) automated erythrocyte mean corpuscular hemoglobin (mass per erythrocyte) on 2018-09-24 MCH Auto Entitic 26 pg (no code) 27 - 31 pg [place] [facility] mass (RBC) [facility] (50116) automated erythrocyte distribution width ratio on 2018-09-24 Erythrocyte 14.4 % (no code) 11.6 - 14.6 % [place] [facility] distribution [facility] width Auto Ratio (99984) (RBC) automated eosinophil count on 2018-09-24 Eosinophils Auto 0.1 10*3/uL (no code) 0.05 - 0.5 [place] [facility] #/vol (Bld) 10*3/uL [facility] (47692) automated blood platelet mean volume measurement on 2018-09-24 Platelet mean 10.7 fL (H) 7.2 - 11.7 fL [place] [facility] volume Auto [facility] Entitic volume (54487) (Bld) automated blood platelet count (count/volume) on 2018-09-24 Platelets Auto 131 10*3/uL (no code) 150 - 450 [place] [facility] #/vol (Bld) 10*3/uL [facility] (07334) automated blood neutrophils/100 leukocytes on 2018-09-24 Neutrophils/100 65 % (no code) 40 - 60 % [place] [facility] WBC Auto (d) [facility] (57193) automated blood lymphocytes/100 leukocytes on 2018-09-24 Lymphocytes/100 23 % (no code) 20 - 40 % [place] [facility] WBC Auto (d) [facility] (25370) automated blood eosinophils/100 leukocytes on 2018-09-24 Eosinophils/100 0 % (no code) 1 - 4 % [place] [facility] WBC Auto (d) [facility] (77944) automated blood basophils/100 leukocytes on 2018-09-24 Basophils/100 0 % (no code) 0.5 - 1 % [place] [facility] WBC Auto (d) [facility] (26634) automated blood basophil count (count/volume) on 2018-09-24 Basophils Auto 0.0 10*3/uL (no code) 0 - 0.3 10*3/uL [facility] #/vol (Bld) [facility] (77624) urine urobilinogen measurement by automated test strip (mass/volume) on 2018-09-04 Urobilinogen NORMAL (no code) [place] [facility] Test strip Qn [facility] (U) (32716) urine total bilirubin detection by test strip on 2018-09-04 Bilirubin Ql (U) 1+ (*) [place] [facility] (53565) urine protein assay by test strip, semi-quantitativ e on 2018-09-04 Protein Test 2+ (*) [place] [facility] strip Ql (U) [facility] (31395) urine ph measurement by test strip on 2018-09-04 pH Test strip 6 [pH] (no code) 4.6 - 8 [pH] [place] [facility] (U) [facility] (47741) urine nitrite detection by test strip on 2018-09-04 Nitrite Test no information (no code) [place] [facility] strip Ql (U) [facility] (01065) urine leukocyte esterase detection by dipstick on 2018-09-04 Leukocyte 2+ (*) [place] [facility] esterase Test [facility] strip Ql (U) (55305) urine ketones detection by automated test strip on 2018-09-04 Ketones 2+ (*) [place] [facility] Automated test [facility] strip Ql (U) (83811) urine glucose detection by automated test strip on 2018-09-04 Glucose no information (no code) [place] [facility] Automated test [facility] strip Ql (U) (98955) urine color determination on 2018-09-04 Color Nom (U) YELLOW (no code) [place] [facility] (90216) urine clarity determination on 2018-09-04 Clarity Nom (U) CLEAR (no code) [place] [facility] (11352) squamous epithelial cells detection in urine sediment by light microscopy on 2018-09-04 Epithelial no information (*) [place] [facility] cells.squamous [facility] LM Ql (Urine (12438) sed) specific gravity of urine by test strip on 2018-09-04 Specific gravity 1.025 (*) [place] [facility] Relative Density [facility] (U) (95872) mucus detection in urine sediment by light microscopy on 2018-09-04 Mucus LM Ql SMALL (*) [place] [facility] (Urine sed) [facility] (93353) erythrocytes detection in urine sediment by light microscopy on 2018-09-04 RBC LM Ql (Urine 1+ (*) [place] [facility] sed) [facility] (57118) crystals detection in urine sediment by light microscopy on 2018-09-04 Crystals LM Ql PRESENT (*) [place] [facility] (Urine sed) [facility] (52830) complete urinalysis with reflex to culture on 2018-09-04 Urinalysis YES (no code) [place] [facility] complete W [facility] Reflex Culture (02832) panel - Urine casts detection in urine sediment by light microscopy on 2018-09-04 Casts LM Ql NONE (no code) [place] [facility] (Urine sed) [facility] (08678) calcium oxalate crystals detection in urine sediment by light microscopy on 2018-09-04 Calcium oxalate FEW (*) [place] [facility] crystals LM Ql [facility] (Urine sed) (49239) bacterial urine culture on 2018-09-04 Bacteria Organism: (no code) [place] [facility] identified Cx Staphylococcus [facility] Nom (U) epidermidis (09868) bacteria detection in urine sediment by light microscopy on 2018-09-04 Bacteria LM Ql MODERATE (*) [place] [facility] (Urine sed) [facility] (99728) automated urine sediment leukocyte count by microscopy (number/high power field) on 2018-09-04 WBC LM.HPF no information (*) [place] [facility] #/area (Urine [facility] sed) (05222) automated urine sediment erythrocyte count by microscopy (number/high power field) on 2018-09-04 RBC LM.HPF no information (*) [place] [facility] #/area (Urine [facility] sed) (50667) urine urobilinogen measurement by automated test strip (mass/volume) on 2018-07-15 Urobilinogen NORMAL (no code) Via [facility] Test strip [facility]38433[facility] urine total bilirubin detection by test strip on 2018-07-15 Bilirubin (U) no information (no code) Via [facility] (95189) urine protein assay by test strip, semi-quantitativ e on 2018-07-15 Protein Test no information (no code) Via [facility] strip ([facility] (94155) urine ph measurement by test strip on 2018-07-15 pH Test strip 6.5 [pH] (no code) 4.6 - 8 [pH] Via [facility] ([facility] (35733) urine nitrite detection by test strip on 2018-07-15 Nitrite Test no information (no code) Via [facility] strip ([facility] (57344) urine ketones detection by automated test strip on 2018-07-15 Ketones no information (no code) Via [facility] Automated test Hospital strip ([facility] (46928) urine glucose detection by automated test strip on 2018-07-15 Glucose no information (no code) Via [facility] Automated test Hospital strip Ql (U) [place] (09570) urine color determination on 2018-07-15 Color Nom (U) YELLOW (no code) Via [facility] (10369) urine clarity determination on 2018-07-15 Clarity Nom (U) CLEAR (no code) Via [facility] (85556) squamous epithelial cells detection in urine sediment by light microscopy on 2018-07-15 Epithelial no information (no code) Via [facility] cells.squamous Hospital LM Ql (Urine [place] sed) (49637) specific gravity of urine by test strip on 2018-07-15 Specific gravity 1.020 (no code) Via [facility] Relative Density Hospital (U) [place] (50740) mucus detection in urine sediment by light microscopy on 2018-07-15 Mucus LM Ql MODERATE (*) Via [facility] (Urine sed) [facility] (68852) leukocyte esterase on 2018-07-15 Leukocyte no information (no code) Via [facility] esterase Test Hospital strip Ql (U) [place] (78757) erythrocytes detection in urine sediment by light microscopy on 2018-07-15 RBC LM Ql (Urine no information (no code) Via [facility]) [facility] (37854) crystals detection in urine sediment by light microscopy on 2018-07-15 Crystals LM Ql NONE (no code) Via [facility] (Urine sed) [facility] (09359) complete urinalysis with reflex to culture on 2018-07-15 Urinalysis NO (no code) Via [facility] Reflex Culture [place] panel - Urine (55967) casts detection in urine sediment by light microscopy on 2018-07-15 Casts LM Ql NONE (no code) Via [facility] (Urine sed) [facility] (00834) bacteria detection in urine sediment by light microscopy on 2018-07-15 Bacteria LM Ql FEW (*) Via [facility] (Urine sed) [facility] (01759) automated urine sediment leukocyte count by microscopy (number/high power field) on 2018-07-15 WBC LM.HPF RARE (no code) Via [facility] #/area (Urine Hospital sed) [place] (50421) automated urine sediment erythrocyte count by microscopy (number/high power field) on 2018-07-15 RBC LM.HPF NONE (no code) Via [facility] #/area (Urine Hospital sed) [place] (04478) Vital Signs The data below is from unstructured sources Vital Response Date/Time Temperature (Fahrenheit) 97.6 degree s F (97.6 - 99.5) 06/05/2016 12:00pm Temperature (Calculated Celsius) 36. 42517 degrees C (36.4 - 37.5) 06/05/2016 12:00pm Temperature Source Tympanic 06/05/2016 12:00pm Pulse Rate (adult) 88 bpm (60 - 90) 06/05/2016 12:00pm Respiratory Rate 16 bpm (12 - 24) 06/05/2016 12:00pm O2 Sat by Pulse Oximetry 98 % (88 - 100) 06/05/2016 12:00pm Blood Pressure 117/63 mm Hg 06/05/2016 12:00pm Blood Pressure Mean 81 mm Hg 06/05/2016 12:00pm Pain Numeric Pain Scale 3 12:00pm Height (Feet) 5 feet 07/2016 1:00am Height (Inches) 7.00 inches 06/05/2016 1:00am Height (Calculated Centimeters) 170. 607969 cm 06/05/2016 1:00am Weight (Pounds) 174 pounds 06/05/2016 1:00am Weight (Ounces) 0.0 oz 0 06/05/2016 1:00am Weight (Calculated Grams) 35675.07 gm 06/05/2016 1:00am Weight (Calculated Kilograms) 78.925 073 kilograms 06/05/2016 1:00am Calculated BMI 27.3 05/26 1:00am Capillary Refill Capillary Refill Less Than 3 Seconds 06/04/2016 7:33pm Vital Response Date/Time Temperature (Fahrenheit) 97.1 degree s F (97.6 - 99.5) Temperature (Calculated Celsius) 36. 35005 degrees C (36.4 - 37.5) Temperature Source Temporal Pulse Rate (adult) 84 bpm (60 - 90) Respiratory Rate 18 bpm (12 - 24) O2 Sat by Pulse Oximetry 99 % (88 - 100) Blood Pressure 130/72 mm Hg Pain Pain Intensity 7 Height (Feet) 5 feet Height (Inches) 7 inches Height (Calculated Centimeters) 170. 104159 cm Weight (Pounds) 150 pounds Weight (Calculated Grams) 06817.997 gm Weight (Calculated Kilograms) 68.038 856 kilograms Calculated BMI 23.49 Vital Response Date/Time Temperature (Fahrenheit) 98.7 degree s F (97.6 - 99.5) 04/18/2018 10:50am Temperature (Calculated Celsius) 37. 94891 degrees C (36.4 - 37.5) 04/18/2018 10:13am Temperature Source Temporal 04/18/2018 10:50am Pulse Rate (adult) 76 bpm (60 - 90) 04/18/2018 10:50am Respiratory Rate 20 bpm (12 - 24) 04/18/2018 10:50am Blood Pressure 103/63 mm Hg 04/18/2018 10:50am Blood Pressure Mean 76 mm Hg (65 - 110) 04/18/2018 10:50am Pain Numeric Pain Scale 0-No Pain 04/18/2018 10:50am Height (Feet) 5 feet 10:50am Height (Inches) 6.00 inches 04/18/2018 10:50am Height (Calculated Centimeters) 167. 218155 cm 04/18/2018 10:50am Weight (Pounds) 173 pounds 04/18/2018 10:50am Weight (Ounces) 0.6 oz 0 04/18/2018 10:50am Weight (Calculated Grams) 32278.491 gm 04/18/2018 10:50am Weight (Calculated Kilograms) 78.488 491 kilograms 04/18/2018 10:50am Height 5 ft 6 in 018 9:45am Weight 173.04 lb 018 9:45am Body Mass Index 27.9 kg/m^2 04/18/2018 10:50am Vital Response Date/Time Temperature (Fahrenheit) 98.3 degree s F (97.6 - 99.5) 07/14/2018 11:16pm Temperature (Calculated Celsius) 36. 83262 degrees C (36.4 - 37.5) 07/14/2018 11:16pm Temperature Source Tympanic 07/14/2018 11:16pm Pulse Rate (adult) 93 bpm (60 - 90) 07/14/2018 11:16pm Respiratory Rate 20 bpm (12 - 24) 07/14/2018 11:16pm Blood Pressure 138/72 mm Hg 07/14/2018 11:16pm Blood Pressure Mean 94 mm Hg (65 - 110) 07/14/2018 11:16pm Pain Numeric Pain Scale 6 11:22pm Height (Feet) 5 feet 11:34pm Height (Inches) 3.00 inches 07/14/2018 11:34pm Height (Calculated Centimeters) 160. 596751 cm 07/14/2018 11:34pm Weight (Pounds) 185 pounds 07/14/2018 11:34pm Weight (Ounces) 0.0 oz 1 11:34pm Weight (Calculated Grams) 83882.59 gm 07/14/2018 11:34pm Weight (Calculated Kilograms) 83.914 589 kilograms 07/14/2018 11:34pm Calculated BMI 32.8 06/26 11:34pm Weight Measurement Method Standing Scale 07/14/2018 11:34pm Vital Response Date/Time Temperature (Fahrenheit) 98.6 degree s F (97.6 - 99.5) 09/25/2018 7:30pm Temperature (Calculated Celsius) 37. 50750 degrees C (36.4 - 37.5) 09/25/2018 7:30pm Temperature Source Temporal 09/25/2018 7:30pm Pulse Rate (adult) 93 bpm (60 - 90) 09/25/2018 7:30pm Respiratory Rate 18 bpm (12 - 24) 09/25/2018 7:30pm O2 Sat by Pulse Oximetry 99 % (88 - 100) 09/25/2018 7:30pm Blood Pressure 118/76 mm Hg 09/25/2018 7:30pm Blood Pressure Mean 90 mm Hg (65 - 110) 09/25/2018 7:30pm Pain Numeric Pain Scale 0-No Pain 09/25/2018 10:20pm Faces Pain Scale 0 08/27 8:26pm Height (Feet) 5 feet 6:25pm Height (Inches) 6.00 inches 09/23/2018 6:25pm Height (Calculated Centimeters) 167. 300209 cm 09/23/2018 6:25pm Weight (Pounds) 195 pounds 09/23/2018 6:25pm Weight (Ounces) 0.0 oz 1 6:25pm Weight (Calculated Grams) 14359.51 gm 09/23/2018 6:25pm Weight (Calculated Kilograms) 88.450 513 kilograms 09/23/2018 6:25pm Calculated BMI 31.5 08/27 6:25pm Weight Measurement Method Standing Scale 09/04/2018 9:50am Interventions No Information Plan of Treatment The data below is from unstructured sources Discharge Date 06/05/16 1:40pm Disposition 01 HOME, SELF-CARE Instructions/Education Provided Acut e Abdominal Pain (ED) Chronic Pelvic Pain in Women (DC) Prescriptions See Medication Section Care Plan and Goals See Discharge In structions Section Activity Details Follow Up prn Reason: Discharge Date 04/18/18 10:55am Instructions/Education Provided OB O UTPATIENT DISCHARGE Dehydration Prescriptions See Medication Section Discharge Date 07/15/18 12:06am Instructions/Education Provided OB O UTPATIENT DISCHARGE Prescriptions See Medication Section Discharge Date 09/25/18 10:20pm

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
--- OUTSIDE RECORDS SUMMARY | 2020-01-03 23:29 | XMS REPORT ---
Author Author Bull ENCINAS Organization [employer] Address Unknown Phone Unavailable Care Team Providers Care Beauty School Instructor Name Role Phone ALISHA ENCINAS CP Unavailable Allergies, Adverse Reactions, Alerts Substance Reaction Event Type Latex rash Drug Allergy Problems Problem Type Condition Code Onset Dates Condition Statu s Assessment Encounter for gynecological examination Z01.419 Active Assessment Screening breast examination Z12.39 Active Problem Encounter for gynecological examination Z01.419 Active Problem Screening breast examination Z12.39 Active Problem General counseling and advice for contraceptive manage ment Z30.09 Active Problem Anxiety F41.9 Active Assessment General counseling and advice for contraceptive manage ment Z30.09 Active Problem History of migraine Z86.69 Active Problem Surveillance of contraceptive injection Z30.42 Active Medications No Known Medications Procedures Procedure Coding System Code Date SPECIMEN HANDLING CPT-4 61184 January 19, 2016 DEPO PROVERA (150 MG/ML) CPT-4 J1050 December 252015 URINE TEST CPT-4 78222 January 18, 016 Office Visit, Est Pt., Level 4 CPT-4 32718 A pril 2015 THER/PROPH/DIAG INJ, SC/IM CPT-4 34376 January 19, 2016 Vital Signs Date/Time: January 19, 2016 Temperature 98.6 F Weight 168.1 lbs Height 69 in BMI 24.82 Index Blood Pressure Diastolic 64 mmHg Blood Pressure Systolic 118 mmHg Cardiac Monitoring Heart Rate 88 bpm Results No Known Results Summary Purpose eClinicalWorks Submission
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
--- OUTSIDE RECORDS SUMMARY | 2020-01-03 23:29 | XMS REPORT ---
Author Author Bull DWYER Organization [facility] Address [address] [place] [address] Care Team Providers Care Braid Folder Name Role Phone TACOS DWYER Unavailable PROBLEMS Type Condition ICD9-CM Code SAC99-JO Code Onset Dates Condition S tatus SNOMED Code Problem Surveillance of contraceptive injection Z30.42 Active 527270881 Problem Screening breast examination Z12.39 A ctive 983736698 Problem History of migraine Z86.69 Active 069308421 Problem Anxiety F41.9 Active 53509407 Problem Acne vulgaris L70.0 Active 464906 00 Problem Weight gain R63.5 Active 8996061 Problem Encounter for gynecological examination Z01.419 Active 811627152 Problem General counseling and advice for contraceptive management Z30.09 Active 04982956 Problem Routine health maintenance Z00.00 Act amber 305154614 Problem Overweight (BMI 25.0-29.9) E66.3 Act amber [id number] ALLERGIES Substance Reaction Event Type Date Status Latex rash Drug Allergy Sep, Active SOCIAL HISTORY No smoking Hx information available PLAN OF CARE Activity Details Follow Up prn Reason: VITAL SIGNS Height 69 in 2016-09-29 Weight 175 lbs 2016-09-29 Temperature 97.7 degrees Fahrenheit 2016-09-29 Heart Rate 82 bpm 2016-09-29 Respiratory Rate 22 2016-09-29 BMI 25.84 kg/m2 2016-09-29 Blood pressure systolic 148 mmHg 2016-09-29 Blood pressure diastolic 76 mmHg 2016-09-29 MEDICATIONS Medication Instructions Dosage Frequency Start Date End Date Duration S tatus Fluticasone Propionate 50 MCG/ACT Nasally Once a day 1 spray in each nostril 24h Sep, 30 day(s) Active Augmentin 875-125 MG Orally every 12 hrs 1 tablet 12h Sep, 2 017 15 Sep, 2016 10 day(s) Active Zyrtec Allergy 10 MG Orally Once a day 1 tablet 24h 05 Sep, 201 7 4 Oct, 2016 30 day(s) Active RESULTS No Results PROCEDURES Procedure Date Ordered Related Diagnosis Body Site DEPO MEDROL 40 MG/ML Sep 29, 2016 THER/PROPH/DIAG INJ, SC/IM Sep 29, 2016 Office Visit, Est Pt., Level 3 Sep 29, 2016 DEXAMETHASONE 4MG/ML (PER 1 MG) Sep 29, 2016 IMMUNIZATIONS Vaccine Route Administration Date Status DEXAMETHASONE 4MG/ML (PER 1 MG) IM Intramuscular Sep 29, 2016 Administered DEPO MEDROL 40 MG/ML IM Intramuscular Sep 29, 2016 Administer ed
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
--- OUTSIDE RECORDS SUMMARY | 2020-01-03 23:29 | XMS REPORT ---
Author Author Bull GUERRA [facility] eClinicalWorks Address Unknown Phone Unavailable Care Team Providers Care Budget Officer Name Role Phone XAVIER GUERRA CP Unavailable Allergies, Adverse Reactions, Alerts Substance Reaction Event Type Latex rash Drug Allergy Problems Problem Type Condition Code Onset Dates Condition Statu s Assessment Anxiety F41.9 Active Assessment History of head injury Z87.828 Activ e Assessment Migraine headache G43.909 Active Problem Migraine headache G43.909 Active Problem Anxiety F41.9 Active Problem History of head injury Z87.828 Activ e Problem Influenza with other respiratory manifestations 487.1 Active Problem General counseling for prescription of oral contracept kathie V25.01 Active Problem Migraine headache 346.90 Active Problem Unspecified contraceptive management V25.9 Active Medications Medication Code System Code Instructions Start Date End Date Status Dosage Topamax [facility] [address]-38 50 MG Orally Twice a day May 12, 2015 1 tablet Lexapro [facility] [address]-86 10 MG Orally Once a day Jul 22, 2015 1 tablet HydrOXYzine HCl [facility] [address]-70 25 MG Orally anabel ry 8 hrs as needed for anxiety and nausea Jul 22, 2015 1 tablet as need ed Procedures Procedure Coding System Code Date Office Visit, Est Pt., Level 3 CPT-[address] 2014 Vital Signs Date/Time: Jul 22, 2015 Temperature 98.6 F Weight 161.3 lbs Height 69 in BMI 23.82 Index Blood Pressure Diastolic 64 mmHg Blood Pressure Systolic 112 mmHg Cardiac Monitoring Heart Rate 84 bpm Results No Known Results Summary Purpose eClinicalWorks Submission
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
--- OUTSIDE RECORDS SUMMARY | 2020-01-03 23:29 | XMS REPORT ---
Author Author Bull WIGGINS Organization eClinicalWorks Address Unknown Phone Unavailable Care Team Providers Care Lime Puller Name Role Phone JOHN WIGGINS CP Unavailable Allergies No Known Allergies Problems Problem Type Condition Code Onset Dates Condition Statu s Problem Anxiety F41.9 Active Problem History of migraine Z86.69 Active Problem Surveillance of contraceptive injection Z30.42 Active Problem Acne vulgaris L70.0 Active Problem Weight gain R63.5 Active Problem Routine health maintenance Z00.00 A ctive Problem Encounter for gynecological examination Z01.419 Active Problem Screening breast examination Z12.39 Active Problem Overweight (BMI 25.0-29.9) E66.3 A ctive Problem General counseling and advice for contraceptive manage ment Z30.09 Active Medications No Known Medications Results No Known Results Summary Purpose eClinicalWorks Submission
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
--- OUTSIDE RECORDS SUMMARY | 2020-01-03 23:29 | XMS REPORT ---
Author Bull Gallegos Organization eClinicalWorks Address Unknown Phone Unavailable Care Team Providers Care Cloth Burler Name Role Phone EILEEN MANLEY CP Unavailable Allergies No Known Allergies Problems Problem Type Condition Code Onset Dates Condition Statu s Problem Surveillance of contraceptive injection Z30.42 Active Problem Anxiety F41.9 Active Problem History of migraine Z86.69 Active Assessment Anxiety F41.9 Active Medications No Known Medications Procedures Procedure Coding System Code Date Psychotherapy, patient &/family, 30 minutes, established patient CPT-4 49180 Sep 22, 2015 Results No Known Results Summary Purpose eClinicalWorks Submission
--- OUTSIDE RECORDS SUMMARY | 2020-01-03 23:29 | XMS REPORT ---
Author Bull Sena [facility] eClinicalWorks Address Unknown Phone Unavailable Care Team Providers Care Carpet Yarn Winder Operator Name Role Phone SCHUYLER DE LA VEGA CP Unavailable Allergies, Adverse Reactions, Alerts Substance Reaction Event Type N.K.D.A. Info Not Available Non Drug Allergy Problems Problem Type Condition ICD-9 Code Onset Dates Condition Statu s Problem Unspecified contraceptive management V25.9 Active Problem Influenza with other respiratory manifestations 487.1 Active Problem Migraine headache 346.90 Active Problem General counseling for prescription of oral contracept kathie V25.01 Active Assessment Cough 786.2 Active Medications Medication Code System Code Instructions Start Date End Date Status Dosage Sudafed [facility] [address]-89 30 MG Orally every 6 hrs pr n nasal congestion Jun 08, 2015 1 tablet as needed Amoxicillin [facility] [address]-66 500 MG Orally every 12 hrs 1 tablet Azithromycin [facility] [address]-75 250 MG Orally Once a day May 262014Jun 13, 2015 2 tablets on the first day, then 1 tablet daily for 4 days Topamax [facility] [address]-79 50 MG Orally Twice a day May 12, 2015 1/2 tab daily x 7 days, 1/2 tab bid x7 days, 1/2 tab in AM, 1 tab HS x7days, then 1 tab bid Antipyrine-Benzocaine [facility] [address]-03 5.4-1.4 % Otic Three times a day 1 drop affected ear canal into affected ear Procedures Procedure Coding System Code Date Office Visit, Est Pt., Level 3 CPT-4 12830 S ept 2014 Vital Signs Date/Time: Jun 08, 2015 Temperature 98.4 F Weight 160.6 lbs Height 69 in BMI 23.71 Index Blood Pressure Diastolic 64 mmHg Blood Pressure Systolic 120 mmHg Cardiac Monitoring Heart Rate 88 bpm Results No Known Results Summary Purpose eClinicalWorks Submission
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
--- OUTSIDE RECORDS SUMMARY | 2020-01-03 23:29 | XMS REPORT ---
Author Author Bull WIGGINS [facility] eClinicalWorks Address Unknown Phone Unavailable Care Team Providers Care Tax Accounting Manager Name Role Phone JOHN WIGGINS CP Unavailable Allergies, Adverse Reactions, Alerts Substance [...] advice for contraceptive manage ment Z30.09 Active Assessment Overweight (BMI 25.0-29.9) E66.3 A ctive Assessment Weight gain R63.5 Active Assessment Acne vulgaris L70.0 Active Assessment Routine health maintenance Z00.00 A ctive Medications Medication Code System Code Instructions Start Date End Date Status Dosage Depo-Provera [facility] [address]-35 150 MG/ML Intramuscular once 1 ml Cleocin-T [facility] [address]-47 1 % Externally Twice a day April 07, 2016 Apply thin layer to face once a day for one week then apply thin layer to face twice daily Procedures Procedure Coding System Code Date GLYCATED HEMOGLOBIN TEST CPT-4 40147 March COMPLETE CBC W/AUTO DIFF WBC CPT-4 65000 Mar y 2015 Office Visit, Est Pt., Level 3 CPT-4 07483 J yue 2015 VENIPUNCT, ROUTINE* CPT-4 95096 April 07, 6 ASSAY OF INSULIN CPT-4 20665 April 07, 2016 COMPREHEN METABOLIC PANEL CPT-4 18132 March 252015 ASSAY THYROID STIM HORMONE CPT-4 93613 April 07, 2016 LIPID PANEL CPT-4 03846 April 07, 2016 Vital Signs Date/Time: April 07, 2016 Cardiac Monitoring Heart Rate 84 bpm Weight 174.5 lbs Height 69 in Blood Pressure Diastolic 72 mmHg Blood Pressure Systolic 118 mmHg Results No Known Results Summary Purpose eClinicalWorks Submission
--- OUTSIDE RECORDS SUMMARY | 2020-01-03 23:29 | XMS REPORT ---
Author Bull Sena Organization eClinicalWorks Address Unknown Phone Unavailable Care Team Providers Care Lawn Service Supervisor Name Role Phone SCHUYLER DE LA VEGA CP Unavailable Allergies No Known Allergies Problems Problem Type Condition ICD-9 Code Onset Dates Condition Statu s Problem Unspecified contraceptive management V25.9 Active Problem Influenza with other respiratory manifestations 487.1 Active Problem Migraine headache 346.90 Active Problem General counseling for prescription of oral contracept kathie V25.01 Active Medications No Known Medications Results No Known Results Summary Purpose eClinicalWorks Submission
--- OUTSIDE RECORDS SUMMARY | 2020-01-03 23:29 | XMS REPORT ---
Author Author Bull Friedman Organization [facility] Address [address] [place] [address] Care Team Providers Care Utilization Engineer Name Role Phone TRAE Friedman Unavailable PROBLEMS Type Condition ICD9-CM Code [id number] Code Onset Dates Condition S tatus SNOMED Code Problem Surveillance of contraceptive injection Z30.42 Active 015060709 Problem History of migraine Z86.69 Active 119731023 Problem Screening breast examination Z12.39 A ctive 610892426 Problem Weight gain R63.5 Active 6573741 Problem Anxiety F41.9 Active 90823832 Problem Acne vulgaris L70.0 Active 762091 00 Problem General counseling and advice for contraceptive management Z30.09 Active 90379030 Problem Encounter for gynecological examination Z01.419 Active 708954122 Problem Overweight (BMI 25.0-29.9) E66.3 Act amber 625771945 Problem Routine health maintenance Z00.00 Act amber [id number] ALLERGIES No Information ENCOUNTERS Encounter Location Date Diagnosis [facility] [address] [facility] [id number] [address] [place] [phone] 16 Oct, 2017 Viral illness B34.9 [facility] [address] [facility] [id number] [address] [place] [phone] 05 Sep, 2016 Acute non-recurrent maxillar y sinusitis J01.00 [facility] [address] [facility] [id number] [address] [place] [phone] 12 May, 2016 control counseling Z30 .9 [facility] [address] [facility] [id number] [address] [place] [phone] 12 Apr, 2016 [facility] [address] [facility] [id number] [address] [place] [phone] Mar, [facility] [address] [address] 14 Mar, 2016 Routine health maintenance Z 00.00 ; Acne vulgaris L70.0 ; Weight gain R63.5 and Overweight (BMI 25.0-29.9) E66.[address] [id number] 13 Mar, 2016 Encounter for Depo-Provera c ontraception Z30.[address] [address] 03 January, 2016 Adjustment disorder with mix ed anxiety and depressed mood F43.[address] [address] 26 Dec, 2015 General counseling and advic e for contraceptive management Z30.09 ; Encounter for gynecological examination Z01.419 and Screening breast examination Z12.[address] [id number] 08 Nov, 2015 Upper respiratory infection J06.[address] [address] Aug, Anxiety F41.[address] [address] 29 Aug, 2015 Anxiety F41.9 [facility] [address] [place] [id number] [address] [place] [phone] Aug, Abdominal pain, acute R10.9 ; Generalized anxiety disorder F41.1 and Acute stress reaction F43.[address] [address] 16 Jul, 2015 Surveillance of contraceptiv e injection Z30.42 ; Encounter for Depo-Provera contraception Z30.42 ; Amenorrhea due to Depo Provera N91.2 and Unprotected sexual intercourse Z72.51 [place] [id number] [address] [place] [phone] 28 Jun, 2015 History of head injury Z87.8 28 ; Migraine headache G43.909 and Anxiety F41.9 [facility] [address] [facility] [id number] [address] [place] [phone] Jun, Anxiety F41.9 [facility] [address] [place] [id number] [address] [place] [phone] 28 May, 2015 Migraine headache 346.90 and Folliculitis 704.8 [facility] [address] [place] [id number] [place] [phone] 16 May, 2015 [facility] [address] [place] [id number] [place] [phone] 14 May, 2015 Cough 786.2 [facility] [address] [place] [id number] [place] [phone] 24 Apr, 2015 Initiation of Depo Provera V 25.02 [facility] [address] [address] Apr, Migraine headache 346.90 [facility] [address] [place] [id number] [place] [phone] Apr, Migraine 346.90 [facility] [address] [address] Mar, Migraine 346.90 and Anxiety 300.00 [facility] [address] [address] Dec, [facility] [address] [place] [id number] [address] [place] [phone] Dec, [facility] [address] [place] [id number] [address] [place] [phone] Nov, [facility] [address] [place] [id number] [place] [phone] Nov, [facility] [address] [place] [id number] [address] [place] [phone] Oct, [facility] [address] [id number] 16 Oct, 2014 [facility] [address] [id number] [address] [place] [phone] Oct, [facility] [address] [id number] [address] [place] [phone] Oct, [facility] [address] [id number] [address] [place] [phone] May, [facility] [address] [id number] [address] [place] [phone] May, [facility] [address] [id number] [address] [place] [phone] Apr, [facility] [address] [id number] [address] [place] [phone] Apr, [facility] [address] [id number] [address] [place] [phone] Oct, [facility] [address] [id number] [address] [place] [phone] Jun, [facility] [address] [id number] [address] [place] [phone] Jun, [facility] [address] [id number] [address] [place] [phone] Aug, IMMUNIZATIONS No Known Immunizations SOCIAL HISTORY [...]
--- OUTSIDE RECORDS SUMMARY | 2020-01-03 23:30 | XMS REPORT ---
Author Author Bull WIGGINS Organization [employer] Address Unknown Phone Unavailable Care Team Providers Care Electronic Scale Subassembler Name Role Phone JOHN WIGGINS CP Unavailable [...]
--- OUTSIDE RECORDS SUMMARY | 2020-01-03 23:30 | XMS REPORT ---
Author Bull Billings Organization [employer] Address Unknown Phone Unavailable Care Team Providers Care Axminster Weaver Name Role Phone ALISHA ENCINAS CP Unavailable Allergies No Known Allergies Problems Problem Type Condition Code Onset Dates Condition Statu s Problem Encounter for gynecological examination Z01.419 Active Problem Screening breast examination Z12.39 Active Problem General counseling and advice for contraceptive manage ment Z30.09 Active Problem Anxiety F41.9 Active Assessment Encounter for Depo-Provera contraception Z30.42 Active Problem History of migraine Z86.69 Active Problem Surveillance of contraceptive injection Z30.42 Active Medications No Known Medications Procedures Procedure Coding System Code Date DEPO PROVERA (150 MG/ML) CPT-4 J1050 March THER/PROPH/DIAG INJ, SC/IM CPT-4 27003 April 06, 2016 URINE TEST CPT-4 09237 April 06 16 Results No Known Results Summary Purpose [employer] Submission
--- OUTSIDE RECORDS SUMMARY | 2020-01-03 23:30 | XMS REPORT ---
Author Author Bull BONE [facility] [employer] Address Unknown Phone Unavailable Care Team Providers Care Newscast Director Name Role Phone HILDA BONE CP Unavailable Allergies, Adverse Reactions, Alerts Substance Reaction Event Type Latex rash Drug Allergy Problems Problem Type Condition Code Onset Dates Condition Statu s Problem Surveillance of contraceptive injection Z30.42 Active Problem Anxiety F41.9 Active Problem History of migraine Z86.69 Active Assessment Amenorrhea due to Depo Provera N91.2 Active Assessment Unprotected sexual intercourse Z72.51 Active Assessment Surveillance of contraceptive injection Z30.42 Active Assessment Encounter for Depo-Provera contraception Z30.42 Active Medications Medication Code System Code Instructions Start Date End Date Status Dosage Topamax [facility] [address]-74 50 MG Orally Twice a day May 12, 2015 1 tablet Depo-Provera [facility] [address]-56 150 MG/ML Intramuscular once 1 ml Lexapro [facility] [address]-42 10 MG Orally Once a day Jul 22, 2015 1 tablet Procedures Procedure Coding System Code Date Office Visit, Est Pt., Level 3 CPT-4 32739 N 2014 No Charge CPT-4 29389 Aug 10, 2015 URINE TEST CPT-4 97632 Aug 10, 201 5 THER/PROPH/DIAG INJ, SC/IM CPT-4 05791 Jul 262014 DEPO PROVERA (150 MG/ML) CPT-4 J1050 Aug 10, 2015 Vital Signs Date/Time: Aug 10, 2015 Temperature 98.1 F Weight 154.9 lbs Height 69 in BMI 22.87 Index Blood Pressure Diastolic 62 mmHg Blood Pressure Systolic 104 mmHg Cardiac Monitoring Heart Rate 84 bpm Results Name Result Date Reference Range Unit Abnormali ty Flag TEST, URINE (IN HOUSE) Summary Purpose [employer] Submission
--- OUTSIDE RECORDS SUMMARY | 2020-01-03 23:30 | XMS REPORT ---
Author Author Bull LANGSTON [facility] Address [address] [place] [address] Care Team Providers Care Dough Machine Operator Name Role Phone ODALIS LANGSTON Unavailable PROBLEMS Type Condition ICD9-CM Code [id number] Code Onset Dates Condition S tatus SNOMED Code Problem Surveillance of contraceptive injection Z30.42 Active 454977521 Problem Screening breast examination Z12.39 A ctive 226973771 Problem History of migraine Z86.69 Active 293084077 Assessment control counseling Z30.9 12 May, 2016 A ctive 44994971 Problem Anxiety F41.9 Active 11316789 Problem Routine health maintenance Z00.00 Act amber 271380951 Problem Acne vulgaris L70.0 Active 621695 00 Problem General counseling and advice for contraceptive management Z30.09 Active 59287098 Problem Encounter for gynecological examination Z01.419 Active 371769870 Problem Weight gain R63.5 Active 4923870 Problem Overweight (BMI 25.0-29.9) E66.3 Act amber 900533979 ALLERGIES Substance Reaction Event Type Date Status Latex rash Drug Allergy 12 May, 2016 Active SOCIAL HISTORY No smoking Hx information available PLAN OF CARE VITAL SIGNS Height 69 in 2016-06-06 Weight 174.6 lbs 2016-06-06 Heart Rate 82 bpm 2016-06-06 Respiratory Rate 20 2016-06-06 BMI 25.78 kg/m2 2016-06-06 Blood pressure systolic 132 mmHg 2016-06-06 Blood pressure diastolic 71 mmHg 2016-06-06 MEDICATIONS Medication Instructions Dosage Frequency Start Date End Date Duration S tatus Seasonique 0.15-0.03 &0.01 MG Orally Once a day 1 tablet 24h 12 May, 2016 Active RESULTS No Results PROCEDURES Procedure Date Ordered Related Diagnosis Body Site Office Visit, Est Pt., Level 3 Jun 06, 2016 IMMUNIZATIONS No Known Immunizations
--- OUTSIDE RECORDS SUMMARY | 2020-01-03 23:30 | XMS REPORT ---
Author Author Bull GUERRA [facility] [employer] Address Unknown Phone Unavailable Care Team Providers Care Inside Sales Professional Name Role Phone XAVIER GUERRA CP Unavailable [...] of oral contracept kathie V25.01 Active Assessment Migraine headache 346.90 Active Medications Medication Code System Code Instructions Start Date End Date Status Dosage Seasonique [facility] [address]-40 0.15-0.03 &0.01 MG Orally Once a day 1 tablet Topamax [facility] [address]-73 50 MG Orally Twice a day May 12, 2015 1/2 tab daily x 7 days, 1/2 tab bid x7 days, 1/2 tab in AM, 1 tab HS x7days, then 1 tab bid Procedures Procedure Coding System Code Date Office Visit, Est Pt., Level 4 CPT-4 59765 A 2014 Vital Signs Date/Time: May 12, 2015 Temperature 98.6 F Weight 167.9 lbs Height 69 in BMI 24.79 Index Blood Pressure Diastolic 70 mmHg Blood Pressure Systolic 118 mmHg Cardiac Monitoring Heart Rate 74 bpm Results No Known Results Summary Purpose [employer] Submission
--- OUTSIDE RECORDS SUMMARY | 2020-01-03 23:30 | XMS REPORT ---
Author Author Bull BRITT Organization [employer] Address Unknown Phone Unavailable Care Team Providers Care Mental Telepathist Name Role Phone TRAE BRITT CP Unavailable Allergies, Adverse Reactions, Alerts Substance Reaction Event Type N.K.D.A. Info Not Available Non Drug Allergy Problems Problem Type Condition ICD-9 Code Onset Dates Condition Statu s Problem Unspecified contraceptive management V25.9 Active Problem Influenza with other respiratory manifestations 487.1 Active Problem Migraine headache 346.90 Active Problem General counseling for prescription of oral contracept kathie V25.01 Active Assessment Initiation of Depo Provera V25.02 A ctive Medications Medication Code System Code Instructions Start Date End Date Status Dosage Seasonique [facility] [address]-23 0.15-0.03 &0.01 MG Orally Once a day 1 tablet Topamax [facility] [address]-94 50 MG Orally Twice a day May 12, 2015 1/2 tab daily x 7 days, 1/2 tab bid x7 days, 1/2 tab in AM, 1 tab HS x7days, then 1 tab bid Procedures Procedure Coding System Code Date Office Visit, Est Pt., Level 3 CPT-4 69988 A 2014 DEPO PROVERA (150 MG/ML) CPT-4 J1050 May 18, 2015 URINE TEST CPT-4 69601 May 18, 5 THER/PROPH/DIAG INJ, SC/IM CPT-4 48807 Apr 262014 Vital Signs Date/Time: May 18, 2015 Temperature 98.0 F Weight 166.5 lbs Height 69 in BMI 24.59 Index Blood Pressure Diastolic 72 mmHg Blood Pressure Systolic 122 mmHg Cardiac Monitoring Heart Rate 78 bpm Results Name Result Date Reference Range Unit Abnormali ty Flag TEST, URINE (IN HOUSE) Summary Purpose [employer] Submission
--- OUTSIDE RECORDS SUMMARY | 2020-01-03 23:30 | XMS REPORT ---
Author Author Bull WIGGINS [facility] [employer] Address Unknown Phone Unavailable Care Team Providers Care Insurance Service Representative Name Role Phone JOHN WIGGINS CP Unavailable Allergies, Adverse Reactions, Alerts Substance Reaction Event Type Latex rash Drug Allergy Problems Problem Type Condition Code Onset Dates Condition Statu s Problem Surveillance of contraceptive injection Z30.42 Active Problem Anxiety F41.9 Active Problem History of migraine Z86.69 Active Assessment Acute stress reaction F43.0 Active Assessment Abdominal pain, acute R10.9 Active Assessment Generalized anxiety disorder F41.1 Active Medications Medication Code System Code Instructions Start Date End Date Status Dosage Lexapro [facility] [address]-77 10 MG Orally Once a day Jul 22, 2015 1 tablet Topamax [facility] [address]-82 50 MG Orally Twice a day May 12, 2015 1 tablet BusPIRone HCl [facility] [address]-03 5 MG Orally Three times a day Aug 1 tablet Depo-Provera [facility] [address]-88 150 MG/ML Intramuscular once 1 ml Procedures Procedure Coding System Code Date URINE TEST CPT-4 90853 Sep 14, 5 IMMUNOASSAY,INFECTIOUS AGENT CPT-4 68163 Sep 14, 2015 URINALYSIS, AUTO, W/O SCOPE CPT-4 23802 Sep 14, 2015 Office Visit, Est Pt., Level 3 CPT-4 19173 D 2014 Vital Signs Date/Time: Sep 14, 2015 Temperature 98.6 F Weight 153 lbs Height 69 in BMI 22.59 Index Blood Pressure Diastolic 60 mmHg Blood Pressure Systolic 102 mmHg Cardiac Monitoring Heart Rate 90 bpm Results Name Result Date Reference Range Unit Abnormali ty Flag UA LONG DIP (IN HOUSE) ----pH 5.0 20150914 ----BLO negative 20150914 ----Clarity dark yellow 20150914 ----Color cloudy 20150914 ----Exp date 20150914 ----Odor foul 20150914 ----Lot # [id number] 20150914 ----GLU negative 20150914 ----CATHERINE negative 20150914 ----CHRISTOPHER negative 20150914 ----NIT negative 20150914 ----KET negative 20150914 ----Lot # [id number] ----SG 1.020 20150914 ----URO 0.2 E.U./dL 20150914 ----Exp date 20150914 ----Protein negative 20150914 H. PYLORI (IN HOUSE) ----H. PYLORI negative 20150914 ----Control + 20150914 ----Lot # [id number] 20150914 ----Exp date 20150914 TEST, URINE (IN HOUSE) ----Exp date 20150914 ----Lot # [id number] 20150914 ----Control + 20150914 ----RESULTS negative 20150914 Summary Purpose [employer] Submission
--- OUTSIDE RECORDS SUMMARY | 2020-01-03 23:30 | XMS REPORT ---
Author Author Bull MANLEY Organization [employer] Address Unknown Phone Unavailable Care Team Providers Care Mold Hoister Name Role Phone EILEEN MANLEY CP Unavailable Allergies No Known Allergies Problems Problem Type Condition Code Onset Dates Condition Statu s Assessment Anxiety F41.9 Active Problem Migraine headache G43.909 Active Problem Anxiety F41.9 Active Problem History of head injury Z87.828 Activ e Problem Influenza with other respiratory manifestations 487.1 Active Problem General counseling for prescription of oral contracept kathie V25.01 Active Problem Migraine headache 346.90 Active Problem Unspecified contraceptive management V25.9 Active Medications No Known Medications Procedures Procedure Coding System Code Date Psych diagnostic evaluation, established patient CPT-4 24174 Jul 22, 2015 Results No Known Results Summary Purpose [employer] Submission
--- OUTSIDE RECORDS SUMMARY | 2020-01-03 23:30 | XMS REPORT | Continuity of Care Document ---
Author Organization Unknown Address Unknown Phone Unavailable Allergies There is no data. Medications There is no data. Problems Date Dx Coded Attending Type Code Diagnosis Diagnosed By 09/02/2009 346.90 KISHAN CHAYO, UNSPECIFIED, WITHOUT MENTION OF INTRACTABLE MIGRAINE WITHOUT MENTION OF STATUS MIGRAINOSUS 09/02/2009 TRAE BRITT APRN A 346.90 MIGRAINE, UNSPECIFIED, WITHOUT MENTION O F INTRACTABLE MIGRAINE WITHOUT MENTION OF STATUS MIGRAINOSUS 09/02/2009 TRAE BRITT APRN A 346.90 MIGRAINE, UNSPECIFIED, WITHOUT MENTION O F INTRACTABLE MIGRAINE WITHOUT MENTION OF STATUS MIGRAINOSUS 09/02/2009 TRAE BRITT APRN A 346.90 MIGRAINE, UNSPECIFIED, WITHOUT MENTION O F INTRACTABLE MIGRAINE WITHOUT MENTION OF STATUS MIGRAINOSUS 06/20/2011 V25.02 CON TRACEPTION - ANY METHOD 06/20/2011 TRAE BRITT APRN A V25.02 CONTRACEPTION - ANY METHOD 06/20/2011 TRAE BRITT APRN A V25.02 CONTRACEPTION - ANY METHOD 06/20/2011 TRAE BRITT APRN A V25.02 CONTRACEPTION - ANY METHOD 06/03/2014 TRAE BRITT APRN A V2 5.9 CONTRACEPTION MANAGEMENT 06/03/2014 TRAE BRITT APRN A V2 5.9 CONTRACEPTION MANAGEMENT 06/03/2014 UMAIR BRITT APRNIDI A V2 5.9 CONTRACEPTION MANAGEMENT 11/08/2014 TRAE BRITT APRN A 48 7.1 INFLUENZA 11/08/2014 UMAIR BRITT APRNIDI A 48 7.1 INFLUENZA 11/10/2014 UMAIR BRITT APRNIDI A V25.01 CONTRACEPTION - ORAL CONTRACEPTION 11/10/2014 TRAE BRITT APRN A V25.01 CONTRACEPTION - ORAL CONTRACEPTION 01/08/2015 TRAE BRITT APRN A 62 5.3 DYSMENORRHEA Procedures Code [place] [address] PREG CARL TEST, URINE (IN- HOUSE) 06/03/2014 36150 THER APUTIC INJ SQ/IM 06/03/2014 J1050 DEPO PROVERA 06/03/2014 14355 PREG CARL TEST, URINE (IN- HOUSE) 11/10/2014 75141 PREG CARL TEST, URINE (IN- HOUSE) 01/08/2015 Results There is no data. Encounters ACCT No. Visit Date/Time Discharge Status Pt. Type Provider Facility Loc./Unit Complaint [id number] 01/08/2015 11:10:00 01/08/2015 23:59: 59 [facility] Outpatient TRAE BRITT APRN [id number] 11/10/2014 17:45:00 11/10/2014 23:59: 59 [facility] Outpatient TRAE BRITT APRN [id number] 06/03/2014 15:55:00 06/03/2014 23:59: 59 [facility] Outpatient TRAE BRITT APRN [id number] 06/20/2011 10:48:00 06/20/2011 23:59: 59 [facility] Outpatient
--- OUTSIDE RECORDS SUMMARY | 2020-01-03 23:30 | XMS REPORT ---
Author Bull Tejada [facility] [employer] Address Unknown Phone Unavailable Care Team Providers Care Esol Teacher Name Role Phone XAVIER GUERRA CP Unavailable Allergies, Adverse Reactions, Alerts Substance Reaction Event Type Latex rash Drug Allergy Problems Problem Type Condition Code Onset Dates Condition Statu s Problem Surveillance of contraceptive injection Z30.42 Active Problem Anxiety F41.9 Active Problem History of migraine Z86.69 Active Assessment Anxiety F41.9 Active Medications Medication Code System Code Instructions Start Date End Date Status Dosage Promethazine HCl [facility] [address]-42 12.5 MG Orally 2 times a day Sep 22, 2015 1 tablet as needed Escitalopram Oxalate [facility] [address]-07 20 MG Orally Once a day Aug 262014 1 tablet BusPIRone HCl [facility] [address]-87 5 MG Orally Three times a day Aug 1 tablet Depo-Provera [facility] [address]-55 150 MG/ML Intramuscular once 1 ml Topamax [facility] [address]-34 50 MG Orally Twice a day May 12, 2015 1 tablet Procedures Procedure Coding System Code Date Office Visit, Est Pt., Level 3 CPT-4 34891 D 2014 Vital Signs Date/Time: Sep 22, 2015 Temperature 98.2 F Weight 154.1 lbs Height 69 in BMI 22.75 Index Blood Pressure Diastolic 68 mmHg Blood Pressure Systolic 110 mmHg Cardiac Monitoring Heart Rate 80 bpm Results No Known Results Summary Purpose [employer] Submission
[2020-01-03] MEDS ORDERED: LACTATED RINGERS 1,000 ML IV ONE (23:39)
[2020-01-03] MEDS ORDERED: ONDANSETRON 4 MG/2 ML (SDV) Z0FRAN IVP ONE (23:45)
[2020-01-03 23:58] LABS: BASOPHILS % (AUTO) 0 % (0-10); EOSINOPHILS # (AUTO) 0.2 10^3/uL (0.0-0.3); EOSINOPHILS % (AUTO) 2 % (0-10); HEMATOCRIT 41 % (35-52); HEMOGLOBIN 13.9 G/DL (11.5-16.0); LYMPHOCYTES # (AUTO) 4.5 X 10^3 (1.0-4.0); LYMPHOCYTES % (AUTO) 44 % (12-44); MEAN CORPUSCULAR HEMOGLOBIN 27 PG (25-34); MEAN CORPUSCULAR HGB CONC 34 G/DL (32-36); MEAN CORPUSCULAR VOLUME 79 FL (80-99); MEAN PLATELET VOLUME 9.4 FL (7.4-10.4); MONOCYTES # (AUTO) 1.1 X 10^3 (0.0-1.0); MONOCYTES % (AUTO) 10 % (0-12); NEUTROPHILS # (AUTO) 4.4 X 10^3 (1.8-7.8); NEUTROPHILS % (AUTO) 43 % (42-75); PLATELET COUNT 262 10^3/uL (130-400); RED CELL DISTRIBUTION WIDTH 14.9 % (10.0-14.5); WHITE BLOOD COUNT 10.2 10^3/uL (4.3-11.0)
[2020-01-04 00:05] LABS: CLARITY,URINE SL CLOUDY; COLOR,URINE AMBER; GLUCOSE, URINE (UA) NEGATIVE (NEGATIVE); KETONES,URINE NEGATIVE (NEGATIVE); LEUKOCYTE ESTERASE ,URINE NEGATIVE (NEGATIVE); NITRITE,URINE NEGATIVE (NEGATIVE); PH,URINE 6.5 (5-9); PROTEIN,URINE 2+ (NEGATIVE)
[2020-01-04] MEDS ORDERED: KETOROLAC 30 MG/ML VIAL IVP ONE (00:15)
[2020-01-04 00:16] LABS: BACTERIA,URINE TRACE /HPF
[2020-01-04 00:21] LABS: BILIRUBIN,URINE 1+ (NEGATIVE)
[2020-01-04 00:22] LABS: AMPHETAMINE SCREEN, URINE NEGATIVE (NEGATIVE); BARBITURATE SCREEN URINE NEGATIVE (NEGATIVE); BENZODIAZEPINES SCREEN URINE NEGATIVE (NEGATIVE); CANNABINOID SCREEN, URINE POSITIVE (NEGATIVE); COCAINE SCREEN URINE NEGATIVE (NEGATIVE); METHADONE STAT NEGATIVE (NEGATIVE); METHAMPHETAMINE SCREEN URINE S NEGATIVE (NEGATIVE); OPIATE SCREEN URINE NEGATIVE (NEGATIVE); OXYCODONE STAT NEGATIVE (NEGATIVE); PROPOXYPHENE STAT NEGATIVE (NEGATIVE); TRICYCLIC ANTIDEPRESSANTS SCRE NEGATIVE (NEGATIVE)
[2020-01-04 00:30] LABS: CHLORIDE 107 MMOL/L (98-107); POTASSIUM 3.7 MMOL/L (3.6-5.0); SODIUM 141 MMOL/L (135-145)
[2020-01-04] MEDS ORDERED: HYOSCYAMINE 0.125 MG (LEVSIN) TAB PO ONE (00:30)
[2020-01-04] MEDS ORDERED: DICYCLOMINE 10 MG/ML (BENTYL) 2 ML AMP IM ONE (00:30)
[2020-01-04 00:31] LABS: AMYLASE 56 U/L (25-125); CALCIUM 9.5 MG/DL (8.5-10.1)
[2020-01-04 00:33] LABS: CARBON DIOXIDE 21 MMOL/L (21-32); GLUCOSE 98 MG/DL (70-105); TOTAL PROTEIN 8.3 GM/DL (6.4-8.2)
[2020-01-04 00:34] LABS: BILIRUBIN,TOTAL 0.3 MG/DL (0.1-1.0)
[2020-01-04 00:36] LABS: ALKALINE PHOSPHATASE 105 U/L (40-136); CREATININE SERUM 1.07 MG/DL (0.60-1.30); GFR ESTIMATED > 60
[2020-01-04 00:37] LABS: BUN/CREATININE RATIO 10
[2020-01-04 00:39] LABS: ALANINE AMINOTRANSFERASE 10 U/L (0-55); LIPASE 20 U/L (8-78)
[2020-01-04] MEDS ORDERED: ORPHENADRINE 60 MG/2 ML (NORFLEX) AMP IV ONE (00:45)
--- NOTE | 2020-01-04 01:27 | ED Abdominal Pain ---
General Chief Complaint: Abdominal/GI Problems Stated Complaint: SHARP ABD PAIN Nursing Triage Note: states sharp cramping abdomianl pain Sepsis Screen: No Definite Risk Source of Information: Patient History of Present Illness Date Seen by Provider: Jan 03, 2020 Time Seen by Provider: 23:34 Initial Comments PT ARRIVES VIA POV FROM HOME C/O SHARP CRAMPING ABDOMINAL PAINS--ALL OVER ABDOMEN, AND MOVES AROUND--STARTED 3 DAYS AGO, BUT HAS BEEN SEVERE SINCE YESTERDAY AND CONSTANT SINCE 1500 TODAY, SINCE SHE STARTED HER PERIOD 3 DAYS AGO STATES THIS IS THE SAME HAS HER MENSTRUAL CRAMPS, BUT IS NOT GOING AWAY PERIODS HAVE BEEN IRREGULAR SINCE OF CHILD HAD 2 PERIODS IN OCTOBER--ONE AT THE BEGINNING AND ONE AT THE END--EACH LASTING 7-8 DAYS. DID NOT HAVE A PERIOD IN NOVEMBER, THEN THIS PERIOD STARTED 3 DAYS AGO, WHICH IS WHEN THIS PAIN BEGAN HAS HAD INCREASED MENSTRUAL CRAMPING SINCE OF HER LAST CHILD HAS ALSO HAD PAIN WITH INTERCOURSE SINCE OF HER LAST CHILD NO VAGINAL DISCHARGE HAS HAD SOME BURNING ON URINATION AND VOIDING SMALL AMOUNTS + NAUSEA, NO VOMITING HAD NORMAL BM TODAY--NO CONSTIPATION OR DIARRHEA NO FEVER NO URI SYMPTOMS ATE BURUNDI[employer] FOOD AT 2000 TONIGHT TOOK MIDOL YESTERDAY AND PAIN WENT AWAY AFTER A COUPLE OF HOURS, THEN PAIN RETURNED TODAY. TOOK TYLENOL AT 2030 TONIGHT WITHOUT RELIEF. NO SICK CONTACTS OR SUSPICIOUS FOODS. 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 PCP: DR. ROJAS Allergies and Home Medications Allergies Coded Allergies: latex (Verified Allergy, Unknown, 09/04/18) Home Medications Cyclobenzaprine HCl 10 Mg Tablet, 10 MG PO Q8H PRN for SPASMS Prescribed by: MIGUEL CORTEZ on 01/04/20150 Docusate Sodium 100 Mg Capsule, 100 MG PO BID Prescribed by: ZONIA ROJAS on 09/25/18 1454 Hydrocodone Bit/Acetaminophen 1 Tab Tab, 1 TAB PO Q4H PRN for PAIN-MODERATE Prescribed by: ZONIA ROJAS on 09/25/18 1454 Hydrocodone Bit/Acetaminophen 1 Ea Tablet, 1 EA PO Q4-6 PRN for PAIN Prescribed by: MIGUEL CORTEZ on 01/04/20150 Ibuprofen 600 Mg Tablet, 600 MG PO Q6H Prescribed by: ZONIA ROJAS on 09/25/18 1454 Ondansetron 8 Mg Tab.rapdis, 8 MG PO Q4H PRN for NAUSEA/VOMITING Prescribed by: MIGUEL CORTEZ on 01/04/20 015 Phenazopyridine HCl 200 Mg Tablet, 1 TAB PO TID Prescribed by: MIGUEL CORTEZ on 01/04/20150 [id number]/FA/Omega3/Dha/Fish Oil 1 Each Tab.chew, 2 EACH PO DAILY, (Reported) Patient Home Medication List Home Medication List Reviewed: Yes Review of Systems Review of Systems Constitutional: no symptoms reported EENTM: No Symptoms Reported Respiratory: No Symptoms Reported Cardiovascular: No Symptoms Reported Gastrointestinal: See HPI, Abdominal Pain; Denies Constipated, Denies Diarrhea; Nausea; Denies Vomiting Genitourinary: See HPI, Burning; Denies Flank Pain; Other (SMALL AMOUNTS) Musculoskeletal: no symptoms reported; No back pain Skin: no symptoms reported Psychiatric/Neurological: No Symptoms Reported Endocrine: No Symptoms Reported Hematologic/Lymphatic: No Symptoms Reported Past Dypguja-Gopmcz-Tvpzfj Hx Past Med/Social Hx: Reviewed and Corrections made Patient Social History Alcohol Use: Denies Use Recreational Drug Use: Yes (THC) Drug of Choice: THC Smoking Status: Never a Smoker Recent Foreign Travel: No Contact w/Someone Who Travel: No Recent Infectious Disease Expo: No Recent Hopitalizations: No Immunizations Up To Date Tetanus Booster (TDap): Unknown PED Vaccines UTD: Yes Date of Influenza Vaccine: Sep 12, 2018 Seasonal Allergies Seasonal Allergies: No Past Medical History Surgeries: No Respiratory: No Cardiac: No Neurological: Yes Headaches /Migraines : No Last Menstrual Period: Dec 31, 2019 Hx : 2 Hx Para: 2 Hx Total # of Abortions (Sp): 0 Reproductive Disorders: No Female Reproductive Disorders: Denies Sexually Transmitted Disease: No HIV/AIDS: No Genitourinary: No Gastrointestinal: No Musculoskeletal: Yes (Arthritis in her neck) Arthritis Endocrine: No HEENT: No Loss of Vision: Denies Hearing Impairment: Denies Cancer: No Psychosocial: No Integumentary: No Blood Disorders: No Adverse Reaction/Blood Tranf: No Family Medical History Arthritis G8 BROTHER Asthma 19 MOTHER Son Hypertension 19 FATHER Neoplasm Grandparents (All 4 grandparents r/t Lung Cancer) No Pertinent Family Hx Physical Exam Vital Signs Vital Signs - First Documented 01/03/20 23:35 Temp 36.7 Pulse 104 Resp 20 B/P (MAP) 122/85 (97) Pulse Ox 94 O2 Delivery Room Air Capillary Refill : Less Than 3 Seconds Height/Weight/BMI Height: 5'6.00" Weight: 195lbs. 0.0oz. [id number]; 28.00 BMI Method:Stated General Appearance: WD/WN, other (PT MOANING LOUDLY AND VERY DRAMATICALLY, IN POSITION ON RIGHT SIDE) HEENT: PERRL/EOMI Respiratory: normal breath sounds, no respiratory distress, no accessory muscle use Cardiovascular: regular rate, rhythm, no murmur Gastrointestinal: normal bowel sounds, soft, no organomegaly, no pulsatile mass; No distended, No guarding, No rebound; tenderness (DIFFUSE TENDERNESS); No hernia, No mass Extremities: normal inspection Back: normal inspection, no CVA tenderness Neurologic/Psychiatric: primary health organisation manager II-XII nml as tested, no motor/sensory deficits, alert, oriented x 3 Skin: normal color, warm/dry; No rash Progress/Results/Core Measures Results/Orders Lab Results Laboratory Tests Test 01/03/20 23:40 Range/Units White Blood Count 10.2 4.3-11.0 10^3/uL Red Blood Count 5.20 4.35-5.85 10^6/uL Hemoglobin 13.9 11.5-16.0 G/DL Hematocrit 41 35-52 % Mean Corpuscular Volume 79 L 80-99 FL Mean Corpuscular Hemoglobin 27 25-34 PG Mean Corpuscular Hemoglobin Concent 34 32-36 G/DL Red Cell Distribution Width 14.9 H 10.0-14.5 % Platelet Count 262 130-400 10^3/uL Mean Platelet Volume 9.4 7.4-10.4 FL Neutrophils (%) (Auto) 43 42-75 % Lymphocytes (%) (Auto) 44 12-44 % Monocytes (%) (Auto) 10 0-12 % Eosinophils (%) (Auto) 2 0-10 % Basophils (%) (Auto) 0 0-10 % Neutrophils # (Auto) 4.4 1.8-7.8 X 10^3 Lymphocytes # (Auto) 4.5 H 1.0-4.0 X 10^3 Monocytes # (Auto) 1.1 H 0.0-1.0 X 10^3 Eosinophils # (Auto) 0.2 0.0-0.3 10^3/uL Basophils # (Auto) 0.0 0.0-0.1 10^3/uL Urine Color JENNIE H Urine Clarity SL CLOUDY Urine pH 6.5 5-9 Urine Specific [place] >=1.030 1.016-1.022 Urine Protein 2+ H NEGATIVE Urine Glucose (UA) NEGATIVE NEGATIVE Urine Ketones NEGATIVE NEGATIVE Urine Nitrite NEGATIVE NEGATIVE Urine Bilirubin 1+ H NEGATIVE Urine Urobilinogen 2.0 < = 1.0 MG/DL Urine Leukocyte Esterase NEGATIVE NEGATIVE Urine RBC (Auto) 3+ H NEGATIVE Urine RBC 5-10 H /HPF Urine WBC NONE /HPF Urine Squamous Epithelial Cells 5-10 /HPF Urine Crystals NONE /LPF Urine Bacteria TRACE /HPF Urine Casts NONE /LPF Urine Mucus SMALL H /LPF Urine Culture Indicated YES Sodium Level 141 135-145 MMOL/L Potassium Level 3.7 3.6-5.0 MMOL/L Chloride Level 107 98-107 MMOL/L Carbon Dioxide Level 21 21-32 MMOL/L Anion Gap 13 5-14 MMOL/L Blood Urea Nitrogen 11 7-18 MG/DL Creatinine 1.07 0.60-1.30 MG/DL Estimat Glomerular Filtration Rate > 60 BUN/Creatinine Ratio 10 Glucose Level 98 70-105 MG/DL Calcium Level 9.5 8.5-10.1 MG/DL Corrected Calcium 8.5-10.1 MG/DL Total Bilirubin 0.3 0.1-1.0 MG/DL Aspartate Amino Transf (AST/SGOT) 17 5-34 U/L Alanine Aminotransferase (ALT/SGPT) 10 0-55 U/L Alkaline Phosphatase 105 40-136 U/L Total Protein 8.3 H 6.4-8.2 GM/DL Albumin 5.0 H 3.2-4.5 GM/DL Amylase Level 56 25-125 U/L Lipase 20 8-78 U/L Urine Opiates Screen NEGATIVE NEGATIVE Urine Oxycodone Screen NEGATIVE NEGATIVE Urine Methadone Screen NEGATIVE NEGATIVE Urine Propoxyphene Screen NEGATIVE NEGATIVE Urine Barbiturates Screen NEGATIVE NEGATIVE Ur Tricyclic Antidepressants Screen NEGATIVE NEGATIVE Urine Phencyclidine Screen NEGATIVE NEGATIVE Urine Amphetamines Screen NEGATIVE NEGATIVE Urine Methamphetamines Screen NEGATIVE NEGATIVE Urine Benzodiazepines Screen NEGATIVE NEGATIVE Urine Cocaine Screen NEGATIVE NEGATIVE Urine Cannabinoids Screen POSITIVE H NEGATIVE My Orders Orders - ADNA,MIGUEL K DO Urine Bedside (01/03/20 23:34) Ua Culture If Indicated (01/03/20 23:34) Ed Iv/Invasive Line Start (01/03/20 23:39) Amylase (01/03/20 23:39) Cbc With Automated Diff (01/03/20 23:39) Comprehensive Metabolic Panel (01/03/20 23:39) Drug Screen Stat (Urine) (01/03/20 23:39) Lipase (01/03/20 23:39) Ed Iv/Invasive Line Start (01/03/20 23:39) Lactated Ringers (Lr 1000 Ml Iv Solution (01/03/20 23:39) Ondansetron Injection (Zofran Injectio (01/03/20 23:45) Ketorolac Injection (Toradol Injection) (01/04/20 00:15) Urine Culture (01/03/20 23:40) Ct Abd/Pelvis Wo(Kidney Stone) (01/04/20 00:22) Abdomen, Flat & Upright/Decub (01/04/20 00:22) Dicyclomine Injection (Bentyl Injection) (01/04/20 00:30) Hyoscyamine Sl Tablet (Levsin Sl Tablet) (01/04/20 00:30) Orphenadrine Injection (Norflex Injectio (01/04/20 00:45) Fentanyl Injection (Sublimaze Injection (01/04/20 01:45) Rx-Cyclobenzaprine Tablet (Rx-Flexeril T (01/04/20 01:44) Rx-Hydrocodone/Apap 5-325 Mg (Rx-Vicodin (01/04/20 01:45) Rx-Ondansetron Po (Rx-Zofran Po) (01/04/20 01:44) Medications Given in ED Current Medications Medications Dose Ordered Sig/Gwendolyn Route Start Time Stop Time Status Last Admin Dose Admin Dicyclomine HCl 20 mg ONCE ONCE IM 01/04/20 00:30 01/04/20 00:31 DC 01/04/20 00:32 20 MG Hyoscyamine Sulfate 0.25 mg ONCE ONCE PO 01/04/20 00:30 01/04/20 00:31 DC 01/04/20 00:30 0.25 MG Ketorolac Tromethamine 30 mg ONCE ONCE IVP 01/04/20 00:15 01/04/20 00:16 DC 01/04/20 00:08 30 MG Lactated Ringer's 1,000 ml @ 0 mls/hr Q0M ONCE IV 01/03/20 23:39 01/03/20 23:41 DC 01/03/20 23:52 1,000 MLS/HR Ondansetron HCl 4 mg ONCE ONCE IVP 01/03/20 23:45 01/03/20 23:46 DC 01/03/20 23:52 4 MG Orphenadrine Citrate 60 mg ONCE ONCE IV 01/04/20 00:45 01/04/20 00:46 DC 01/04/20 00:42 60 MG Vital Signs/I&O 01/03/20 23:35 Temp 36.7 Pulse 104 Resp 20 B/P (MAP) 122/85 (97) Pulse Ox 94 O2 Delivery Room Air Blood Pressure Mean: 97 Progress Progress Note : Progress Note PAIN IS MOVING AROUND DURING COURSE OF ER STAY HAS MOVED TO SUPRAPUBIC AREA ON RETURN FROM CT GIVEN TORADOL, LEVSIN, BENTYL WITH BRIEF RELIEF OF PAIN GIVEN FENTANYL WITH MODERATE IMPROVEMENT OF PAIN Diagnostic Imaging Comments ABDOMEN XRAYS--NO ACUTE PROCESS, MODERATE AMOUNT OF GAS IN COLON, PENDING RADIOLOGIST REVIEW CT ABDOMEN/ PELVIS-2 MM CALCIFICATION IN LEFT PELVIS--APPEARS TO BE VASCULAR, BUT DISTAL CALCULUS IS LESS LIKELY--PER [facility] VIA FAX AT 0124 Reviewed: Reviewed by Me Departure Impression Primary Impression: Abdominal pain Additional Impressions: POSSIBLE KIDNEY STONE Irregular menstrual bleeding Dysmenorrhea Disposition: HOME, SELF-CARE Condition: Improved Departure-Patient Inst. Referrals: ZONIA ROJAS MD (PCP/Family) Primary Care Physician Patient Instructions: Acute Abdomen (Belly Pain), Adult (DC), How to Strain Your Urine, Kidney Stones (DC) Add. Discharge Instructions: CLEAR LIQUIDS--WATER, BROTH, JELLO, GATORADE--DRINK ENOUGH SO YOU ARE URINATING EVERY 2-3 HOURS WHILE AWAKE STRAIN ALL URINE--RETURN ANY STONES TO YOUR DR'S OFFICE FOLLOW UP WITH DR. ROJAS ON MONDAY, RETURN TO ER IF WORSE All discharge instructions reviewed with patient and/or family. Voiced understanding. Scripts Cyclobenzaprine HCl (Cyclobenzaprine HCl) 10 Mg Tablet 10 MG PO Q8H PRN for SPASMS, #15 TAB 0 Refills Prov: MIGUEL CORTEZ DO 01/04/20 Ondansetron (Ondansetron Odt) 8 Mg Tab.rapdis 8 MG PO Q4H PRN for NAUSEA/VOMITING, #10 TAB Prov: MIGUEL CORTEZ DO 01/04/20 Hydrocodone Bit/Acetaminophen (HYDROcodone/APAP 7.5/325 TAB) 1 Ea Tablet 1 EA PO Q4-6 PRN for PAIN, #20 TAB Prov: MIGUEL CORTEZ DO 01/04/20 Phenazopyridine HCl (Pyridium) 200 Mg Tablet 1 TAB PO TID, #15 TAB Prov: MIGUEL CORTEZ DO 01/04/20 MIGUEL CORTEZ DO Jan 04, 2020 01:27
[2020-01-04] MEDS ORDERED: RX-CYCLOBENZAPRINE 10 MG (FLEXERIL) TAB PPK#3 PO STA (01:44)
[2020-01-04] MEDS ORDERED: RX-ONDANSETRON 4 MG ODT (ZOFRAN) PPK #4 PO STA (01:44)
[2020-01-04] MEDS ORDERED: fentaNYL INJECTION 100 MCG/2 ML AMP IVP ONE (01:45)
[2020-01-04] MEDS ORDERED: RX-HYDROCODONE/APAP 5/325 MG #4 TAB PK PO PRN (01:45)
[2020-01-04] MEDS ORDERED: HYDR-34 PO (01:51)
[2020-01-04] MEDS ORDERED: ONDA8TAB13 PO (01:51)
[2020-01-04] MEDS ORDERED: CYCL10TA9 PO (01:51)
[2020-01-04] MEDS ORDERED: PHEN-640 PO (01:51)
[2020-01-04] MEDS ORDERED: TAMSULOSIN 0.4 MG (FLOMAX) CAP PO SCH (02:00)
[2020-01-04 02:15] VITALS: BP 115/80
--- NOTE | 2020-01-04 06:35 | Diagnostic Imaging Report ---
PROCEDURE: CT urinary tract, rule out kidney stone. TECHNIQUE: Multiple contiguous axial images were obtained through the abdomen and pelvis without the use of intravenous contrast. Auto Exposure Controls were utilized during the CT exam to meet ALARA standards for radiation dose reduction. INDICATION: Dysuria, pelvic pain. COMPARISON: 06/04/2016. DISCUSSION: The lung bases are well-aerated. Normal heart size. No pleural or pericardial fluid. The gallbladder is contracted. The liver, pancreas, stomach, spleen, and adrenal glands are unremarkable. No renal stone or hydronephrosis. Probable small phlebolith within the left adnexa. The uterus and urinary bladder are unremarkable. The appendix is normal. No obstruction, pneumatosis, pneumoperitoneum. No ascites or pathologically enlarged lymph nodes identified. Chronic bilateral L5 pars defect with grade 1 anterolisthesis of L5 on S1 is stable. IMPRESSION: 1. No acute abnormality identified within either the abdomen or pelvis. 2. Agree with preliminary report. Dictated by: Dictated on workstation # [id number]
--- NOTE | 2020-01-04 06:48 | Diagnostic Imaging Report ---
EXAM: Supine and erect abdomen at 1:04 a.m. INDICATION: Abdominal pain The CT abdomen/pelvis exam performed prior to this study failed to show any sign of an acute abnormality. There was a 2 mm calcification low in the pelvis on the left. This is felt to be more likely vascular in nature than due to an obstructive ureteral stone. On this study, that calcification is difficult to appreciate. There is gas in both the large and small bowel in a nonspecific fashion. There is no sign of a bowel obstruction. There is no mass, organomegaly or pathological calcification evident. The osseous structures are intact. IMPRESSION: The bowel gas pattern is nonspecific. There is no acute abnormality noted. Dictated by: Dictated on workstation # [id number]
== END 2020-01-04 02:16 | disposition home or self-care (01) ==
LOC: EDUNIT# 23:21 → ER 23:23
DX: N92.6 Irregular menstruation, unspecified (principal); N94.6 Dysmenorrhea, unspecified; Z91.040 Latex allergy status; Z82.49 Family history of ischemic heart disease and other diseases of the circulatory system
CPT/HCPCS: 36415; 74019; 74176; 80053; 80306; 81000; 82150; 83690; 84703; 85025; 87088

== ENCOUNTER 2022-10-06 10:06 | Emergency (ER) | payer MEDICAID, OTHER ==
[~2022-10-06] VITALS: Ht 167.7 cm; Wt 78.4 kg
[~2022-10-06 10:06] MED LIST changes: +CYCL10TA25 PO; +HYDR-34 PO; +ONDA8TAB13 PO; +PHEN-640 PO
--- NOTE | 2022-10-06 10:20 | ED GU-Female ---
General Stated Complaint: VAG DISCHARGE; SUPRAPUBIC CRAMPING DURING PREG 9w History of Present Illness Date Seen by Provider: Oct 06, 2022 Time Seen by Provider: 10:17 Initial Comments 27-year-old female presents with suprapubic and pelvic cramping is been going on for about 3 days. Patient's had a couple gushes of fluid over the last 3 days with some pink and brown tinge to it. Patient is 9 weeks 3 days and she is concerned that she possibly miscarriage and would like to be evaluated with an ultrasound. She denies any urinary symptoms. Patient has had an ultrasound that showed an intrauterine . Patient does not report any fevers or chills. She reports up to 3 days ago she was having type symptoms with tender breast, nausea and now has ceased since she is had the fluid gushed out along with the cramping. Allergies and Home Medications Allergies Coded Allergies: latex (Verified Allergy, Unknown, 09/04/18) Patient Home Medication List Home Medication List Reviewed: Yes Cephalexin (Cephalexin) 500 Mg Tablet, 500 MG PO QID Prescribed by: CLYDE IRELAND on 10/06/22 1140 Cyclobenzaprine HCl (Cyclobenzaprine HCl) 10 Mg Tablet, 10 MG PO Q8H PRN for SPASMS Prescribed by: MIGUEL CORTEZ on 01/04/20 015 Docusate Sodium (Docusate Sodium) 100 Mg Capsule, 100 MG PO BID Prescribed by: ZONIA ROJAS on 09/25/18 1454 Hydrocodone Bit/Acetaminophen (Lortab 5 Mg Tablet) 1 Tab Tab, 1 TAB PO Q4H PRN for PAIN-MODERATE Prescribed by: ZONIA ROJAS on 09/25/18 1454 Hydrocodone Bit/Acetaminophen (HYDROcodone/APAP 7.5/325 TAB) 1 Ea Tablet, 1 EA PO Q4-6 PRN for PAIN Prescribed by: MIGUEL CORTEZ on 01/04/20 015 Ibuprofen (Ibu) 600 Mg Tablet, 600 MG PO Q6H Prescribed by: ZONIA ROJAS on 09/25/18 1454 Ondansetron (Ondansetron Odt) 8 Mg Tab.rapdis, 8 MG PO Q4H PRN for NAUSEA/VOMITING Prescribed by: MIGUEL CORTEZ on 01/04/20 015 Phenazopyridine HCl (Pyridium) 200 Mg Tablet, 1 TAB PO TID Prescribed by: MIGUEL CORTEZ on 01/04/20 0151 Fqz343/FA/Omega3/Dha/Fish Oil ( Gummies) 1 Each Tab.chew, 2 EACH PO DAILY, (Reported) Entered as Reported by: XAVIER WISDOM on 09/04/18 1001 Review of Systems Review of Systems Constitutional: no symptoms reported EENTM: no symptoms reported Respiratory: no symptoms reported Cardiovascular: no symptoms reported Gastrointestinal: see HPI Genitourinary: see HPI Musculoskeletal: no symptoms reported Skin: no symptoms reported Psychiatric/Neurological: No Symptoms Reported Past Kpievec-Vpyimy-Bjcrpo Hx Immunizations Up To Date Tetanus Booster (TDap): Unknown PED Vaccines UTD: Yes Seasonal Allergies Seasonal Allergies: No Past Medical History Surgeries: No Respiratory: No Cardiac: No Neurological: Yes Headaches /Migraines Reproductive Disorders: No Female Reproductive Disorders: Denies Sexually Transmitted Disease: No HIV/AIDS: No Genitourinary: No Gastrointestinal: No Musculoskeletal: Yes (Arthritis in her neck) Arthritis Endocrine: No HEENT: No Loss of Vision: Denies Hearing Impairment: Denies Cancer: No Psychosocial: No Integumentary: No Blood Disorders: No Adverse Reaction/Blood Tranf: No Family Medical History Arthritis G8 BROTHER Asthma 19 MOTHER Son Hypertension 19 FATHER Neoplasm Grandparents (All 4 grandparents r/t Lung Cancer) No Pertinent Family Hx Physical Exam Vital Signs Vital Signs - First Documented 10/06/22 10/06/22 10:12 11:51 Temp 36.2 Pulse 84 Resp 16 B/P (MAP) 130/81 (97) Pulse Ox 100 O2 Delivery Room Air Capillary Refill : Height, Weight, BMI Height: 5'6.00" Weight: 195lbs. 0.0oz. 88.885999ke; 28.00 BMI Method:Stated General Appearance: WD/WN, no apparent distress Cardiovascular: normal peripheral pulses, regular rate, rhythm Respiratory: no respiratory distress, no accessory muscle use Gastrointestinal: soft, tenderness (suprapubic ) Extremities: normal range of motion Neurologic/Psychiatric: alert, normal mood/affect, oriented x 3 Progress/Results/Core Measures Suspected Sepsis SIRS Temperature: Pulse: Respiratory Rate: Blood Pressure / Mean: Results/Orders Lab Results Laboratory Tests Test 10/06/22 10:12 10/06/22 10:37 Range/Units Urine Color YELLOW Urine Clarity CLOUDY Urine pH 6.5 5-9 Urine Specific [place] 1.015 L 1.016-1.022 Urine Protein NEGATIVE NEGATIVE Urine Glucose (UA) NEGATIVE NEGATIVE Urine Ketones NEGATIVE NEGATIVE Urine Nitrite POSITIVE H NEGATIVE Urine Bilirubin NEGATIVE NEGATIVE Urine Urobilinogen 0.2 < = 1.0 MG/DL Urine Leukocyte Esterase TRACE H NEGATIVE Urine RBC (Auto) NEGATIVE NEGATIVE Urine RBC NONE /HPF Urine WBC 2-5 /HPF Urine Squamous Epithelial Cells 2-5 /HPF Urine Renal Epithelial Cells RARE /HPF Urine Crystals NONE /LPF Urine Bacteria LARGE H /HPF Urine Casts NONE /LPF Urine Mucus NEGATIVE /LPF Urine Culture Indicated YES Human Chorionic Gonadotropin, Quant [id number] H <5 MIU/ML My Orders Orders - IRELAND,CLYDE L DO Hcg,Quantitative (10/06/22 10:24) Ua Culture If Indicated (10/06/22 10:24) Urine Culture (10/06/22 10:12) Us Ob<14 Wks [place] W/Transvag (10/06/22 10:24) Vital Signs/I&O 10/06/22 11:51 Temp 36.5 Pulse 84 Resp 18 B/P (MAP) 129/78 Pulse Ox 100 O2 Delivery Room Air Capillary Refill : Progress Note : Progress Note Patient's ultrasound was reviewed and shows a intrauterine 10-week . Patient does have a urinary tract infection. I discussed with them that at this time there is no indications of a miscarriage but is difficult to determine future outcomes. We will treat her urinary tract infection with Keflex. She should closely follow-up with her OB. Patient was stable and discharged home Diagnostic Imaging Diagonstic Imaging: Ultrasound Comments Date of Exam:10/06/22 US OB<14 WKS SNGLE W/TRANSVAG US OB<14 WKS SNGLE W/TRANSVAG INDICATION: [place] vaginal discharge during COMPARISON: None available. TECHNIQUE: Transabdominal and transvaginal sonographic imaging of the pelvis was performed. FINDINGS: There is a gestational sac with normal morphology appropriate position in the upper uterus. Within the gestational sac there is a small fetus with a average crown-rump length of 31 mm, giving an estimated gestational age of 10 weeks and 0 days. No izabella-gestational hemorrhage. A thin uniform septation is present within the gestational sac which is likely a normal membrane. The right ovary measures 3.6 x 2.2 x 2.5 cm. The left ovary measures 3.1 x 1.5 x 1.4 cm. Blood flow seen to both ovaries. No concerning adnexal mass. Trace amount of simple free fluid is present. IMPRESSION: 1. Single live intrauterine with a heart rate of 174 bpm. Reviewed: Reviewed/Discussed Departure Impression Primary Impression: Urinary tract infection Qualified Codes: N30.00 - Acute cystitis without hematuria Additional Impression: 10 weeks gestation of Disposition: HOME, SELF-CARE Condition: Stable Departure-Patient Inst. Referrals: NO,LOCAL PHYSICIAN (PCP/Family) Primary Care Physician Patient Instructions: Urinary Tract Infection, Adult (DC), Bleeding In Early Add. Discharge Instructions: Please follow-up closely with your inbound call center agent. Return to the ER with any concerns. Please continue to take your vitamins Scripts Cephalexin (Cephalexin) 500 Mg Tablet 500 MG PO QID, #20 TAB 0 Refills Prov: CLYDE IRELAND DO 10/06/22 CLYDE IRELAND DO Oct 06, 2022 10:19
[2022-10-06 10:30] LABS: BILIRUBIN,URINE NEGATIVE (NEGATIVE); CLARITY,URINE CLOUDY; COLOR,URINE YELLOW; GLUCOSE, URINE (UA) NEGATIVE (NEGATIVE); KETONES,URINE NEGATIVE (NEGATIVE); LEUKOCYTE ESTERASE ,URINE TRACE (NEGATIVE); NITRITE,URINE POSITIVE (NEGATIVE); PH,URINE 6.5 (5-9); PROTEIN,URINE NEGATIVE (NEGATIVE)
[2022-10-06 10:38] LABS: BACTERIA,URINE LARGE /HPF
[2022-10-06 10:39] LABS: RENAL EPITHELIAL CELLS,URINE RARE /HPF
[2022-10-06] MEDS ORDERED: CEPH500T PO (11:40)
--- NOTE | 2022-10-06 11:49 | Diagnostic Imaging Report ---
US OB<14 WKS SNGLE W/TRANSVAG INDICATION: [place] vaginal discharge during COMPARISON: None available. TECHNIQUE: Transabdominal and transvaginal sonographic imaging of the pelvis was performed. FINDINGS: There is a gestational sac with normal morphology appropriate position in the upper uterus. Within the gestational sac there is a small fetus with a average crown-rump length of 31 mm, giving an estimated gestational age of 10 weeks and 0 days. No izabella-gestational hemorrhage. A thin uniform septation is present within the gestational sac which is likely a normal membrane. The right ovary measures 3.6 x 2.2 x 2.5 cm. The left ovary measures 3.1 x 1.5 x 1.4 cm. Blood flow seen to both ovaries. No concerning adnexal mass. Trace amount of simple free fluid is present. IMPRESSION: 1. Single live intrauterine with a heart rate of 174 bpm. Dictated by: Dictated on workstation # [id number]
[2022-10-06 11:51] VITALS: BP 129/78
== END 2022-10-06 11:52 | disposition home or self-care (01) ==
LOC: EDUNIT# 10:06 → ER FS 10:09
DX: O23.41 Unspecified infection of urinary tract in pregnancy, first trimester (principal); N39.0 Urinary tract infection, site not specified; Z91.040 Latex allergy status; Z3A.10 10 weeks gestation of pregnancy
CPT/HCPCS: 36415; 76801; 76817; 81000; 84702; 87077; 87088; 87186

== ENCOUNTER → 2022-10-19 | Outpatient (CLI) | payer MEDICAID ==
[~2022-10-19] MED LIST changes: +CEPH500T PO
--- NOTE | 2022-10-19 17:10 | Diagnostic Imaging Report ---
INDICATION: Unable to detect heart tones. . COMPARISON: None. TECHNIQUE: Transpelvic and transvaginal sonogram was performed. FINDINGS: There is a single, live intrauterine with a crown-rump length measuring 5.3 cm, which is consistent with a 12 week and 0 day old fetus. heart rate was documented at 172 beats per minute. anatomy is not well seen at this early state of gestation. Gestational sac shape is appropriate. No adnexal masses are identified. Left ovary is not well visualized due to positioning. Right ovary has a normal appearance and Measures 3.1 x 1.9 x 3.2 cm. There is no free fluid in the cul-de-sac. CLINICAL DATES: Gestational age 10 weeks and 1 day RADHA is 05/16/2023. IMPRESSION: Single, live intrauterine at 12 weeks and 0 days. Estimated due date is 05/03/2023. These are discordant with clinical dates. Recommend redating based on this exam. Dictated by: Dictated on workstation # [id number]
== END ==
LOC: RAD 16:17
PROVIDERS: ATTEND Family Medicine
DX: Z34.91 Encounter for supervision of normal pregnancy, unspecified, first trimester (principal); Z3A.12 12 weeks gestation of pregnancy
CPT/HCPCS: 76801; 76817

== ENCOUNTER → 2022-12-26 | Outpatient (CLI) | payer MEDICAID ==
[~2022-12-26] MED LIST changes: +ONDA4TAB11 SL
--- NOTE | 2022-12-26 13:50 | Diagnostic Imaging Report ---
INDICATION: anatomy survey. TECHNIQUE: Multiple real-time grayscale images were obtained over the gravid uterus. COMPARISON: None FINDINGS: Single live intrauterine is in cephalic presentation. Cervix is closed and measures 4.3 cm. Placenta is anteriorly positioned, and there is no previa. Maternal adnexa are suboptimally evaluated due to advanced gestational age. LAZARO is normal at 13.46 cm. The following anatomy is visualized and normal: Cerebellum, cisterna magna, cerebral ventricles, four-chamber heart, kidneys, umbilical cord insertion, urinary bladder, three-vessel cord, spine, profile, right ventricular outflow tract, and left ventricular outflow tract. Biometrical measurements are as follows: Biparietal 5.12 cm, age 21 weeks 4 days. Head circumference 19.77 cm, age 22 weeks 0 days. Abdominal circumference 16.70 cm, age 21 weeks 6 days. Femur length 4.01 cm, age 23 weeks 0 days. Sonographic estimate age: 22 weeks 1 days. Sonographic estimated date of delivery: 04/30/2023. Estimated Weight: 485 gm (+/- 71 gm). LMP percentile: Greater than 98%. heart rate: 160 beats per minute. number: 1 of 1. IMPRESSION: 1. Single live intrauterine has normal anatomy survey. 2. Fetus is measuring larger than clinical dates. Dictated by: Dictated on workstation # [id number]
== END ==
LOC: RAD 09:37
PROVIDERS: ATTEND Nurse Practitioner Women's Health
DX: Z34.82 Encounter for supervision of other normal pregnancy, second trimester (principal); Z3A.22 22 weeks gestation of pregnancy
CPT/HCPCS: 76805

== ENCOUNTER 2022-12-28 08:41 | Outpatient (CLI) | payer MEDICAID ==
[~2022-12-28] VITALS: Ht 167.7 cm; Wt 75.7 kg
[~2022-12-28 08:41] MED LIST changes: -ONDA4TAB11 SL
[2022-12-28] MEDS ORDERED: NS IV 500 ML 500 ML ONE (08:48)
[2022-12-28] MEDS ORDERED: NS IV 500 ML 500 ML IV SCH (09:00)
[2022-12-28] MEDS ORDERED: D5 LR IV SOLUTION 1,000 ML IV SCH (09:00)
[2022-12-28 09:05] LABS: BASOPHILS % (AUTO) 1 % (0-10); EOSINOPHILS % (AUTO) 1 % (0-10); HEMATOCRIT 34 % (35-52); HEMOGLOBIN 11.7 g/dL (11.5-16.0); LYMPHOCYTES # (AUTO) 0.8 10^3/uL (1.0-4.0); LYMPHOCYTES % (AUTO) 15 % (12-44); MEAN CORPUSCULAR HEMOGLOBIN 29 pg (25-34); MEAN CORPUSCULAR HGB CONC 34 g/dL (32-36); MEAN CORPUSCULAR VOLUME 84 fL (80-99); MEAN PLATELET VOLUME 9.3 fL (9.0-12.2); MONOCYTES # (AUTO) 0.8 10^3/uL (0.0-1.0); MONOCYTES % (AUTO) 14 % (0-12); NEUTROPHILS # (AUTO) 3.9 10^3/uL (1.8-7.8); NEUTROPHILS % (AUTO) 69 % (42-75); PLATELET COUNT 184 10^3/uL (130-400); WHITE BLOOD COUNT 5.7 10^3/uL (4.3-11.0)
[2022-12-28 09:07] VITALS: BP 121/64
[2022-12-28 09:29] LABS: ALBUMIN 3.5 GM/DL (3.2-4.5); BILIRUBIN,DIRECT 0.3 MG/DL (0.0-0.3); BILIRUBIN,TOTAL 0.6 MG/DL (0.1-1.0); CALCIUM 8.4 MG/DL (8.5-10.1); CREATININE SERUM 0.64 MG/DL (0.60-1.30); POTASSIUM 3.3 MMOL/L (3.6-5.0); TOTAL PROTEIN 6.8 GM/DL (6.4-8.2)
[2022-12-28] MEDS: POTASSIUM CL 10MEQ/50ML IVPB 50 ML IV SCH ×2 (10:01→11:05)
[2022-12-28] MEDS ORDERED: ONDANSETRON 4 MG/2 ML (SDV) Z0FRAN IVP PRN (10:15)
[2022-12-28] MEDS ORDERED: fentaNYL INJ 100 MCG/2 ML AMP IVP ONE (12:45)
[2022-12-28] MEDS ORDERED: ONDA4TAB11 SL (14:00)
[2022-12-28 14:17] LABS: CLARITY,URINE CLEAR; COLOR,URINE ORANGE; GLUCOSE, URINE (UA) NEGATIVE (NEGATIVE); KETONES,URINE 3+ (NEGATIVE); LEUKOCYTE ESTERASE ,URINE NEGATIVE (NEGATIVE); NITRITE,URINE NEGATIVE (NEGATIVE); PROTEIN,URINE NEGATIVE (NEGATIVE)
[2022-12-28 14:27] LABS: BACTERIA,URINE FEW /HPF; BILIRUBIN,URINE 1+ (NEGATIVE); RBC,URINE RARE /HPF; WBC,URINE 0-2 /HPF
--- NOTE | 2022-12-29 08:13 | Physician Query-Final Dx ---
BENIGNO,12/29/22 0813: Clinic Account Progress/Dx Physician Query: Please give diagnosis Please include # weeks gestation Date of Service Dec 28, 2022 at 08:41 TOVA CORREIA DO 12/29/22 1022: Clinic Account Progress/Dx DIAGNOSIS: Diagnosis 30 week IUP Acute gastroenteritis BENIGNO,SepDec 29, 2022 08:13 TOVA CORREIA DO Dec 29, 2022 10:22
== END 2022-12-28 14:30 | disposition home or self-care (01) ==
LOC: WSo 08:41 → LDRP 08:41 → WSo 14:30
PROVIDERS: ATTEND Obstetrics & Gynecology
DX: O99.613 Diseases of the digestive system complicating pregnancy, third trimester (principal); K52.9 Noninfective gastroenteritis and colitis, unspecified; Z3A.30 30 weeks gestation of pregnancy
CPT/HCPCS: 36415; 80053; 81000; 82150; 82248; 83690; 85025

== ENCOUNTER 2023-03-15 11:03 | Outpatient (CLI) | payer MEDICAID ==
[~2023-03-15] VITALS: Ht 167.7 cm; Wt 78.7 kg
[~2023-03-15 11:03] MED LIST changes: +ONDA4TAB11 SL
[2023-03-15 11:21] VITALS: BP 103/55
[2023-03-15 11:23] LABS: BILIRUBIN,URINE NEGATIVE (NEGATIVE); CLARITY,URINE SL CLOUDY; COLOR,URINE YELLOW; GLUCOSE, URINE (UA) NEGATIVE (NEGATIVE); KETONES,URINE NEGATIVE (NEGATIVE); LEUKOCYTE ESTERASE ,URINE TRACE (NEGATIVE); NITRITE,URINE NEGATIVE (NEGATIVE); PROTEIN,URINE NEGATIVE (NEGATIVE)
[2023-03-15 11:31] LABS: BACTERIA,URINE TRACE /HPF; RBC,URINE RARE /HPF; WBC,URINE RARE /HPF
[2023-03-15] MEDS ORDERED: SERT-413 PO (11:38)
[2023-03-15 11:42] VITALS: BP 103/55
[2023-03-15] MEDS ORDERED: ACETAMINOPHEN 500 MG TAB (TYLENOL) PO ONE (12:00)
--- NOTE | 2023-03-15 13:10 | OB Triage Report ---
Standard Progress Note Progress Notes/Assess & Plan Date Seen by a Provider: Mar 15, 2023 Time Seen by a Provider: 13:05 Expected Date of Delivery: May 03, 2023 Gestational Age in Weeks: 33 Gestational Age in Days: 0 LMP/RADHA Comment: This 27yo presents to L&D with c/oi cramping, back pain and Vag DC FHR 130 Reactive Nitrazine and ROM neg TOCOs occasional to irregular Labs reviewed. Diagnosis/Problems Diagnosis/Problems (1) with 33 completed weeks gestation Status: Acute Assessment & Plan: IUP @ 33w DC to home Keep next appt (2) Uterine contractions Assessment & Plan: false labor (3) Amniotic fluid leaking Status: Acute Assessment & Plan: negative nitrazine ROM test neg (4) Back pain Assessment & Plan: improved. No CTXs SHANNON RIVERA DO Mar 15, 2023 13:10
[2023-03-15 13:16] VITALS: BP 106/59
[2023-03-15 13:30] VITALS: BP 103/55
== END 2023-03-15 13:30 | disposition home or self-care (01) ==
LOC: WSo 11:03 → LDRP 11:03 → WSo 13:30
PROVIDERS: ATTEND Obstetrics & Gynecology
DX: O62.9 Abnormality of forces of labor, unspecified (principal); O42.90 Premature rupture of membranes, unspecified as to length of time between rupture and onset of labor, unspecified weeks of gestation; Z3A.00 Weeks of gestation of pregnancy not specified
CPT/HCPCS: 81000; 84112; 99213

== ENCOUNTER 2023-04-17 13:38 | Inpatient (IN) | payer MEDICAID ==
[~2023-04-17] VITALS: Ht 170.2 cm; Wt 82.6 kg
[2023-04-17] VITALS (50 sets, daily range): BP systolic 110–143; BP diastolic 56–96
[~2023-04-17 13:38] MED LIST changes: +SERT-413 PO
[2023-04-17] MEDS ORDERED: MINERAL OIL 30 ML UDC TOP PRN (13:45)
[2023-04-17] MEDS ORDERED: WATER (STERILE) FOR INJECTION 0 ML ONE (13:55)
[2023-04-17] MEDS ORDERED: AMPICILLIN 2,000 MG/14.8 ML (IV USE) ONE (13:55)
[2023-04-17] MEDS ORDERED: D5 LR 1,000 ML IV SOLN 1,000 ML IV ONE (13:55)
[2023-04-17] MEDS: D5 LR 1,000 ML IV SOLN 1,000 ML IV SCH ×4 (13:59→21:34)
[2023-04-17] MEDS ORDERED: CATHETER FLUSH 10 ML SYR IV SCH (14:00)
[2023-04-17] MEDS ORDERED: AMPICILLIN (IV) 2,000 MG in NS (IVPB) 50 ML 50 ML IV ONE (14:00)
[2023-04-17] MEDS ORDERED: LIDOCAINE 1% INJ 10 ML VIAL IJ PRN (14:15)
[2023-04-17 14:18] LABS: BASOPHILS % (AUTO) 0 % (0-10); EOSINOPHILS # (AUTO) 0.1 10^3/uL (0.0-0.3); EOSINOPHILS % (AUTO) 1 % (0-10); HEMATOCRIT 33 % (35-52); LYMPHOCYTES # (AUTO) 2.5 X 10^3 (1.0-4.0); LYMPHOCYTES % (AUTO) 20 % (12-44); MEAN CORPUSCULAR HEMOGLOBIN 25 pg (25-34); MEAN CORPUSCULAR HGB CONC 33 g/dL (32-36); MEAN CORPUSCULAR VOLUME 77 fL (80-99); MEAN PLATELET VOLUME 10.5 fL (9.0-12.2); MONOCYTES # (AUTO) 0.8 X 10^3 (0.0-1.0); MONOCYTES % (AUTO) 7 % (0-12); NEUTROPHILS # (AUTO) 8.8 X 10^3 (1.8-7.8); NEUTROPHILS % (AUTO) 71 % (42-75); PLATELET COUNT 184 10^3/uL (130-400); WHITE BLOOD COUNT 12.3 10^3/uL (4.3-11.0)
[2023-04-17] MEDS ORDERED: fentaNYL 2 mcg/ml BUPIVA 0.125 100 ML ONE (15:15)
[2023-04-17] MEDS ORDERED: NALOXONE 0.4 MG/ML 1 ML (NARCAN) VIAL IV PRN ×2 (16:00)
[2023-04-17] MEDS ORDERED: ONDANSETRON 4 MG/2 ML (SDV) Z0FRAN IV PRN (16:00)
[2023-04-17] MEDS ORDERED: METOCLOPRAMIDE INJ 10 MG/2 ML (REGLAN) IV PRN (16:00)
[2023-04-17] MEDS ORDERED: fentaNYL 2 mcg/ml BUPIVA 0.125 100 ML EPI SCH (16:00)
[2023-04-17] MEDS ORDERED: LACTATED RINGERS 1,000 ML IV SCH (16:00)
[2023-04-17] MEDS ORDERED: diphenhydrAMINE 50 MG/ML INJ (BENADRYL) IV PRN (16:00)
[2023-04-17] MEDS ORDERED: AMPICILLIN (IV) 1,000 MG in NS (IVPB) 50 ML 50 ML IV SCH (17:45)
[2023-04-17] MEDS ORDERED: FAMOTIDINE 20MG/2ML IV (PEPCID) IVP PRN (19:00)
[2023-04-17] MEDS ORDERED: LIDOCAINE PF 2% 5 ML (XYLOCAINE) VIAL ONE (19:22)
--- NOTE | 2023-04-17 21:16 | History & Physical-OB ---
OB - Chief Complaint & HPI Date/Time Date of Admission: Date of Admission: Apr 17, 2023 at 13:38 Date seen by a Provider: Apr 17, 2023 Time Seen by a Provider: 14:00 Chief Complaint/History OB-Reason for Admission/Chief: Onset of Labor Hx : 5 Hx Para: 3 Expected Date of Delivery: May 03, 2023 Gestational Age in Weeks: 37 Gestational Age in Days: 5 Admission Nurse Assessment Rev: Yes Other This 28yo presents to L&D @ 37w5d with c/o CTXs that Started this AM. She denies any loss of fluid or vaginal bleeding. She is GBS positive. In the office she was 3 cm she was sent to walk around she came back a couple hours later and was about 4 cm. Her contractions had gotten more intense and more frequent. She was then sent to labor and delivery. Allergies and Home Medications Allergies Coded Allergies: latex (Verified Allergy, Unknown, 09/04/18) Patient Home Medication List Home Medication List Reviewed: Yes Gpu187/FA/Omega3/Dha/Fish Oil ( Gummies) 1 Each Tab.chew, 2 EACH PO DAILY, (Reported) Entered as Reported by: XAVIER WISDOM on 09/04/18 1001 Last Action: Reviewed Sertraline HCl (Sertraline HCl) 50 Mg Tablet, 50 MG PO, (Reported) Entered as Reported by: YESI CARVAJAL on 03/15/23 1138 Last Action: Reviewed OB - History Hx of Present Care: Yes Ultrasounds: Normal mid trimester US Obstetrical Complications: None Medical Complications: None Information Induced Hypertension: No Maternal Gestational Diabetes: No Hemorrhage: No Obstetrical History Hx : 5 Hx Para: 3 Hx # Term Pregnancies: 3 Hx # Pregnancies: 0 Number of Living Children: 3 Hx Termination: No Hx Total # of Abortions (Spona: 1 Hx Multiple Gestation: No Hx Ectopic : No Hx Stillbirth: No Hx Complication: No Hx Induced Hypertens: No Hx Maternal Gestational Diabet: No Hx Hemorrhage: No Delivery History Hx Dystocia: No Hx Forceps Assisted Delivery: No Hx Vacuum Extraction Assisted: No Hx Placenta Abnormality: No Hx Distress: No Hx Large For Gestational Age I: No Hx Small for Gestational Age I: No Hx Section: No Hx Vaginal Delivery Post C-Sec: No Hx Blood Disorders: No Adverse Rxn to Tranfusion: No Patient Past Medical History no chronic medical problems Social History/Family History Alcohol Use: Denies Use Recreational Drug Use: No Smoking Cessation: Never smoker 2nd Hand Smoke Exposure: No Immunizations Influenza Vaccine Up-to-Date: Yes; Up-to-Date Hepatitis A: No Hepatitis B: Yes Tetanus Booster (TDap): Unknown OB - Admission Exam Physical Exam Vitals: Vital Signs 04/17/23 04/17/23 18:30 19:00 Temp 36.5 Pulse 63 Resp 20 B/P (MAP) 111/56 (74) Pulse Ox 98 O2 Delivery Room Air HEENT: NCAT Heart: Rhythm Normal Lungs: Clear Extremities: Normal Reflexes: Normal Cervical Dilatation: 3cm Effacement: 75% Station: -2 Membranes: Intact Heart Rate: 140's Accelerations: Accelerations Present Decelerations: No Decelerations Short Term Variability: Present Resident Manager Variability: Average (6-25) Contractions on Admission: 6-10 Minutes Apart Intensity: Moderate Labs Laboratory Tests Test 04/17/23 13:52 Range/Units White Blood Count 12.3 H 4.3-11.0 10^3/uL Red Blood Count 4.35 3.80-5.11 10^6/uL Hemoglobin 11.0 L 11.5-16.0 g/dL Hematocrit 33 L 35-52 % Mean Corpuscular Volume 77 L 80-99 fL Mean Corpuscular Hemoglobin 25 25-34 pg Mean Corpuscular Hemoglobin Concent 33 32-36 g/dL Red Cell Distribution Width 14.2 10.0-14.5 % Platelet Count 184 130-400 10^3/uL Mean Platelet Volume 10.5 9.0-12.2 fL Immature Granulocyte % (Auto) 1 % Neutrophils (%) (Auto) 71 42-75 % Lymphocytes (%) (Auto) 20 12-44 % Monocytes (%) (Auto) 7 0-12 % Eosinophils (%) (Auto) 1 0-10 % Basophils (%) (Auto) 0 0-10 % Neutrophils # (Auto) 8.8 H 1.8-7.8 X 10^3 Lymphocytes # (Auto) 2.5 1.0-4.0 X 10^3 Monocytes # (Auto) 0.8 0.0-1.0 X 10^3 Eosinophils # (Auto) 0.1 0.0-0.3 10^3/uL Basophils # (Auto) 0.0 0.0-0.1 10^3/uL Immature Granulocyte # (Auto) 0.1 0.0-0.1 10^3/uL Syphilis Total Antibody Negative Negative OB - Assessment/Plan/Diagnosis Assessment Assessment: active labor, group B positive strep Admission Dx IUP @ 37w5d Active labor Admission Status: Inpatient Order (span 2 midnights) Reason for Inpatient Admission: IUP@ 37w5d Active labor Plan Plan: Expectant Management SHANNON RIVERA DO Apr 17, 2023 21:16
--- NOTE | 2023-04-17 21:19 | OB Triage Report ---
Standard Progress Note Progress Notes/Assess & Plan Date Seen by a Provider: Apr 17, 2023 Time Seen by a Provider: 20:35 Expected Date of Delivery: May 03, 2023 Gestational Age in Weeks: 37 Gestational Age in Days: 5 LMP/RADHA Comment: Patient is comfortable with epidural. She has received 2 doses of antibiotics. FHR 140 CAT I CVX 5/80/-1 AROM clear fluid TOCOs Q 3-4min Progress/Assessment & Plan Continue to monitor Anticipate SHANNON RIVERA DO Apr 17, 2023 21:19
[2023-04-17] MEDS ORDERED: OXYTOCIN PRE-MIX DRIP 500 ML IV ONE (23:41)
[2023-04-18] VITALS (14 sets, daily range): BP systolic 111–134; BP diastolic 56–140
--- NOTE | 2023-04-18 00:07 | OB Labor & Delivery Record ---
Vag Delivery Note Vag Delivery Note Date of Delivery: 04/18/23 5110 Preoperative Diagnosis: Bull Longo is a (28 /Para 5 / 3,Gestational Age (wks)37w5d Postoperative Diagnosis: Same Surgeon: SHANNON RIVERA Make Ready Worker: [] Anesthesia: Epidural Delivery Type: Continues vaginal delivery Findings: [] Liveborn female Apgars 8/9 weight 6 pounds 2 ounces 2780 g Lacerations: None Intact placenta with 3 vessel cord. No nuchal cord, body cord or shoulder dystocia Estimated Blood Loss: 100ml Complications: None Condition: Stable Description of Procedure: The patient is a 28 year old female who presented At 37 weeks 5 days with complaint of contractions. She changed her cervix and was admitted for labor.. She was admitted and informed consent was obtained. Her labor course was uneventful. She progressed to complete dilatation and began to push The patient was complete and began to push pushed for less than 5 minutes to deliver the head in a straightaway position. The anterior shoulder (right) delivered followed by the posterior shoulder followed by the rest the n eonate. The infant was placed on maternal abdomen. It was noted that the cord was short. After 60 seconds the cord was clamped and cut the placenta delivered with manual extraction and intact with three-vessel cord. Cord bloods were obtained. The uterus was massaged and Pitocin was given intravenously. The cervix, vagina, perianal and perineal areas were all inspected there were no lacerations noted. The quantitative blood loss was 100 cc. All sponge instrument and needle counts were correct x2. The mother and tolerated procedure well and recovering in the room in stable condition. Vitals - Labs Vital Signs - I&O Vital Signs Date Time Temp Pulse Resp B/P (MAP) Pulse Ox O2 Delivery O2 Flow Rate FiO2 04/17/23 19:00 63 20 111/56 (74) 98 Room Air 04/17/23 18:45 76 20 120/69 (86) 98 Room Air 04/17/23 18:30 36.5 68 20 110/59 (76) 99 Room Air 04/17/23 18:15 70 20 112/68 (83) 99 Room Air 04/17/23 18:00 65 20 129/70 (89) 99 Room Air 04/17/23 17:45 66 20 137/75 (95) 100 Room Air 04/17/23 17:30 68 20 124/68 (86) 100 Room Air 04/17/23 17:15 73 20 131/63 (85) 100 Room Air 04/17/23 17:05 71 20 127/70 (89) 100 Room Air 04/17/23 17:00 69 20 128/71 (90) 100 Room Air 04/17/23 16:55 67 20 129/68 (88) 100 Room Air 04/17/23 16:50 68 20 138/73 (94) 99 Room Air 04/17/23 16:45 70 20 130/67 (88) 99 Room Air 04/17/23 16:30 67 20 135/73 (93) 99 Room Air 04/17/23 16:23 72 20 137/77 (97) 100 Room Air 04/17/23 16:18 70 20 136/76 (96) 100 Room Air 04/17/23 16:15 75 20 136/73 (94) 99 Room Air 04/17/23 16:10 75 20 127/70 (89) 99 Room Air 04/17/23 16:05 73 20 127/65 (85) 98 Room Air 04/17/23 16:03 80 20 131/64 (86) 98 Room Air 04/17/23 15:58 88 20 128/71 (90) 99 Room Air 04/17/23 15:55 73 20 131/72 (91) 99 Room Air 04/17/23 15:50 80 20 134/68 (90) 99 Room Air 04/17/23 15:45 75 20 129/75 (93) 99 Room Air 04/17/23 15:40 67 20 127/64 (85) 98 Room Air 04/17/23 15:38 70 20 129/65 (86) 98 Room Air 04/17/23 15:35 73 20 136/67 (90) 99 Room Air 04/17/23 15:30 63 20 134/65 (88) 98 Room Air 04/17/23 15:27 80 20 141/70 (93) 98 Room Air 04/17/23 15:00 71 20 128/74 (92) Room Air 04/17/23 14:30 36.8 70 20 131/71 (91) Room Air 04/17/23 13:55 37.2 77 20 99 Room Air Labs Laboratory Tests 04/17/23 13:52: White Blood Count 12.3H, Red Blood Count 4.35, Hemoglobin 11.0L, Hematocrit 33L, Mean Corpuscular Volume 77L, Mean Corpuscular Hemoglobin 25, Mean Corpuscular Hemoglobin Concent 33, Red Cell Distribution Width 14.2, Platelet Count 184, Mean Platelet Volume 10.5, Immature Granulocyte % (Auto) 1, Neutrophils (%) (Auto) 71, Lymphocytes (%) (Auto) 20, Monocytes (%) (Auto) 7, Eosinophils (%) (Auto) 1, Basophils (%) (Auto) 0, Neutrophils # (Auto) 8.8H, Lymphocytes # (Auto) 2.5, Monocytes # (Auto) 0.8, Eosinophils # (Auto) 0.1, Basophils # (Auto) 0.0, Immature Granulocyte # (Auto) 0.1, Syphilis Total Antibody Negative SHANNON RIVERA DO Apr 18, 2023 00:07
[2023-04-18] MEDS ORDERED: MEASLES,MUMPS,RUBELLA 1 EA INJ SQ ONE (00:15)
[2023-04-18] MEDS ORDERED: DIBUCAINE 1% OINTMENT 28 GM TUBE TOP PRN (00:15)
[2023-04-18] MEDS ORDERED: NALOXONE 0.4 MG/ML 1 ML (NARCAN) VIAL IV PRN (00:15)
[2023-04-18] MEDS ORDERED: TETANUS,DIPTH,PERTUSS P/F (BOOSTRIX) 0.5 ML VIAL IM ONE (00:15)
[2023-04-18] MEDS ORDERED: WITCH HAZEL(TUCKS) 40 EA JAR TOP PRN (00:15)
[2023-04-18] MEDS ORDERED: BENZOCAINE/MENTHOL (DERMOPLAST) 56 ML CAN TP PRN (00:15)
[2023-04-18] MEDS ORDERED: OXYTOCIN PRE-MIX DRIP 500 ML IV ONE (00:15)
[2023-04-18] MEDS ORDERED: OXYTOCIN PRE-MIX DRIP 500 ML IV SCH ×2 (00:15→07:45)
[2023-04-18] MEDS ORDERED: IBUPROFEN 800 MG (MOTRIN) TAB PO ONE (00:37)
[2023-04-18] MEDS ORDERED: ACETAMINOPHEN 500 MG TABLET ONE (00:37)
[2023-04-18] MEDS: IBUPROFEN 800 MG (MOTRIN) TAB PO PRN ×3 (00:39→16:12)
[2023-04-18] MEDS: ACETAMINOPHEN 500 MG TABLET PO PRN ×4 (00:39→20:51)
[2023-04-18] MEDS ORDERED: CATHETER FLUSH 10 ML SYR IV SCH (06:00)
--- NOTE | 2023-04-18 07:12 | Postpartum Progress Note ---
Note Note Day # 1 Subjective: Patient is without complaints. Ambulating, voiding. Tolerating a regular diet without nausea or vomiting. Normal lochia. Pain is well controlled with oral pain medications. . [] Objective: [] Physical Exam: General - Alert and oriented, no apparent distress Breasts are symmetrical no erythema or edema or engorgement Abdomen - Soft, appropriately tender to palpation, non-distended, fundus firm at umbilicus Lochia minimal Extremities - no edema, negative Rose Mary's bilaterally Assessment: [] post- day # 1, status post Spontaneous vaginal delivery. Recovering well, hemodynamically stable Plan: Routine care. Encourage breast feeding. Encourage ambulation. Ferrous sulfate supplementation. Plan for discharge [] Vitals - Labs Vital Signs - I&O Vital Signs Date Time Temp Pulse Resp B/P (MAP) Pulse Ox O2 Delivery O2 Flow Rate FiO2 04/18/23 06:40 36.2 62 18 113/64 (80) 99 Room Air 04/18/23 02:40 36.8 64 20 125/60 (81) Room Air 04/18/23 02:25 61 20 117/56 (76) Room Air 04/18/23 02:10 60 20 118/58 (78) Room Air 04/18/23 01:55 67 20 125/59 (81) Room Air 04/18/23 01:25 58 20 115/56 (75) Room Air 04/18/23 01:10 36.8 69 20 127/63 (84) Room Air 04/18/23 00:55 57 20 128/70 (89) Room Air 04/18/23 00:40 66 20 116/59 (78) Room Air 04/18/23 00:15 75 20 134/63 (86) Room Air 04/18/23 00:00 76 20 133/140 (138) Room Air 04/17/23 23:30 74 20 133/73 (93) Room Air 04/17/23 23:15 75 20 133/74 (93) Room Air 04/17/23 23:00 70 20 131/67 (88) Room Air 04/17/23 22:45 86 20 134/96 (109) Room Air 04/17/23 22:30 72 20 122/58 (79) Room Air 04/17/23 22:15 73 20 126/62 (83) Room Air 04/17/23 22:00 37.1 84 20 132/83 (99) 100 Room Air 04/17/23 21:45 82 20 128/60 (82) 100 Room Air 04/17/23 21:30 85 20 134/66 (88) 100 Room Air 04/17/23 21:15 71 20 135/69 (91) 100 Room Air 04/17/23 21:00 73 20 134/63 (86) 100 Room Air 04/17/23 20:45 73 20 143/72 (95) 100 Room Air 04/17/23 20:30 71 20 134/64 (87) 100 Room Air 04/17/23 20:15 77 20 120/64 (82) 100 Room Air 04/17/23 20:00 66 20 130/62 (84) 100 Room Air 04/17/23 19:45 68 20 124/66 (85) 100 Room Air 04/17/23 19:30 36.8 96 20 137/62 (87) 100 Room Air 04/17/23 19:15 68 20 113/56 (75) 98 Room Air 04/17/23 19:00 63 20 111/56 (74) 98 Room Air 04/17/23 18:45 76 20 120/69 (86) 98 Room Air 04/17/23 18:30 36.5 68 20 110/59 (76) 99 Room Air 04/17/23 18:15 70 20 112/68 (83) 99 Room Air 04/17/23 18:00 65 20 129/70 (89) 99 Room Air 04/17/23 17:45 66 20 137/75 (95) 100 Room Air 04/17/23 17:30 68 20 124/68 (86) 100 Room Air 04/17/23 17:15 73 20 131/63 (85) 100 Room Air 04/17/23 17:05 71 20 127/70 (89) 100 Room Air 04/17/23 17:00 69 20 128/71 (90) 100 Room Air 04/17/23 16:55 67 20 129/68 (88) 100 Room Air 04/17/23 16:50 68 20 138/73 (94) 99 Room Air 04/17/23 16:45 70 20 130/67 (88) 99 Room Air 04/17/23 16:30 67 20 135/73 (93) 99 Room Air 04/17/23 16:23 72 20 137/77 (97) 100 Room Air 04/17/23 16:18 70 20 136/76 (96) 100 Room Air 04/17/23 16:15 75 20 136/73 (94) 99 Room Air 04/17/23 16:10 75 20 127/70 (89) 99 Room Air 04/17/23 16:05 73 20 127/65 (85) 98 Room Air 04/17/23 16:03 80 20 131/64 (86) 98 Room Air 04/17/23 15:58 88 20 128/71 (90) 99 Room Air 04/17/23 15:55 73 20 131/72 (91) 99 Room Air 04/17/23 15:50 80 20 134/68 (90) 99 Room Air 04/17/23 15:45 75 20 129/75 (93) 99 Room Air 04/17/23 15:40 67 20 127/64 (85) 98 Room Air 04/17/23 15:38 70 20 129/65 (86) 98 Room Air 04/17/23 15:35 73 20 136/67 (90) 99 Room Air 04/17/23 15:30 63 20 134/65 (88) 98 Room Air 04/17/23 15:27 80 20 141/70 (93) 98 Room Air 04/17/23 15:00 71 20 128/74 (92) Room Air 04/17/23 14:30 36.8 70 20 131/71 (91) Room Air 04/17/23 13:55 37.2 77 20 99 Room Air Labs Laboratory Tests 04/17/23 13:52: White Blood Count 12.3H, Red Blood Count 4.35, Hemoglobin 11.0L, Hematocrit 33L, Mean Corpuscular Volume 77L, Mean Corpuscular Hemoglobin 25, Mean Corpuscular Hemoglobin Concent 33, Red Cell Distribution Width 14.2, Platelet Count 184, Mean Platelet Volume 10.5, Immature Granulocyte % (Auto) 1, Neutrophils (%) (Auto) 71, Lymphocytes (%) (Auto) 20, Monocytes (%) (Auto) 7, Eosinophils (%) (Auto) 1, Basophils (%) (Auto) 0, Neutrophils # (Auto) 8.8H, Lymphocytes # (Auto) 2.5, Monocytes # (Auto) 0.8, Eosinophils # (Auto) 0.1, Basophils # (Auto) 0.0, Immature Granulocyte # (Auto) 0.1, Syphilis Total Antibody Negative SHANNON RIVERA DO Apr 18, 2023 07:12
[2023-04-18] MEDS: PRENATAL VITAMIN 1 EA TAB PO SCH (08:47)
[2023-04-18] MEDS: FERROUS SULF 325 MG (IRON) TAB PO SCH (08:47)
[2023-04-18] MEDS: DOCUSATE SODIUM 100 MG (COLACE) CAP PO SCH ×2 (08:47→20:51)
[2023-04-18] MEDS ORDERED: DOCUSATE CALCIUM 240 MG (SURFAK) CAP PO SCH (09:00)
--- NOTE | 2023-04-18 10:40 | Anesthesia-Regional Post-Op ---
Regional Patient Condition Mental Status: Alert, Oriented x3 Circulation: Same as Pre-Op Headache: Absent Sensation: Full Recovery Motor Block: Absent Post Op Complications Complications None Follow Up Care/Instructions Patient Instructions None needed. Anesthesia/Patient Condition Patient is doing well, no complaints, stable vital signs, no apparent adverse anesthesia problems. No complications reported per nursing. D/C home per [facility] Criteria: Yes DEVI OTTO CRNA Apr 18, 2023 10:40
[2023-04-19] MEDS: IBUPROFEN 800 MG (MOTRIN) TAB PO PRN ×2 (00:18→08:43)
[2023-04-19] MEDS: ACETAMINOPHEN 500 MG TABLET PO PRN (05:26)
[2023-04-19 07:18] LABS: BASOPHILS % (AUTO) 0 % (0-10); EOSINOPHILS # (AUTO) 0.2 10^3/uL (0.0-0.3); EOSINOPHILS % (AUTO) 2 % (0-10); HEMATOCRIT 33 % (35-52); HEMOGLOBIN 10.7 g/dL (11.5-16.0); LYMPHOCYTES # (AUTO) 3.8 10^3/uL (1.0-4.0); LYMPHOCYTES % (AUTO) 31 % (12-44); MEAN CORPUSCULAR HEMOGLOBIN 26 pg (25-34); MEAN CORPUSCULAR HGB CONC 33 g/dL (32-36); MEAN CORPUSCULAR VOLUME 78 fL (80-99); MONOCYTES # (AUTO) 0.8 10^3/uL (0.0-1.0); MONOCYTES % (AUTO) 6 % (0-12); NEUTROPHILS # (AUTO) 7.3 10^3/uL (1.8-7.8); NEUTROPHILS % (AUTO) 60 % (42-75); PLATELET COUNT 159 10^3/uL (130-400); WHITE BLOOD COUNT 12.1 10^3/uL (4.3-11.0)
[2023-04-19] MEDS ORDERED: RHO(D) IMMUNE GLOBULIN 300 MCG/2 ML SYRINGE IM/IV ONE (08:30)
[2023-04-19 08:40] VITALS: BP 128/73
[2023-04-19] MEDS: FERROUS SULF 325 MG (IRON) TAB PO SCH (08:43)
[2023-04-19] MEDS: DOCUSATE SODIUM 100 MG (COLACE) CAP PO SCH (08:43)
[2023-04-19] MEDS: PRENATAL VITAMIN 1 EA TAB PO SCH (08:43)
--- NOTE | 2023-04-19 08:45 | Postpartum Progress Note ---
Note Note Day # 2 Subjective: Patient is without complaints. Ambulating, voiding. Tolerating a regular diet without nausea or vomiting. Normal lochia. Pain is well controlled with oral pain medications.Breast-feeding. Objective: Vital signs stable afebrile Physical Exam: General - Alert and oriented, no apparent distress Breast symmetrical no erythema edema or engorgement Abdomen - Soft, appropriately tender to palpation, non-distended, fundus firm at umbilicus Lochia minimal Extremities - Nontender no erythema or edema Assessment: [] post- day # 2, status post Spontaneous vaginal delivery. Recovering well, hemodynamically stable Plan: Routine care. Encourage breast feeding. Encourage ambulation. Ferrous sulfate supplementation. Plan for discharge [] Vitals - Labs Vital Signs - I&O Vital Signs Date Time Temp Pulse Resp B/P (MAP) Pulse Ox O2 Delivery O2 Flow Rate FiO2 04/18/23 20:50 36.5 59 18 111/56 (74) 98 Room Air 04/18/23 12:00 36.8 61 16 118/59 (78) 98 Room Air Labs Laboratory Tests 04/19/23 07:05: White Blood Count 12.1H, Red Blood Count 4.16, Hemoglobin 10.7L, Hematocrit 33L, Mean Corpuscular Volume 78L, Mean Corpuscular Hemoglobin 26, Mean Corpuscular Hemoglobin Concent 33, Red Cell Distribution Width 14.5, Platelet Count 159, Mean Platelet Volume 10.0, Immature Granulocyte % (Auto) 1, Neutrophils (%) (Auto) 60, Lymphocytes (%) (Auto) 31, Monocytes (%) (Auto) 6, Eosinophils (%) (Auto) 2, Basophils (%) (Auto) 0, Neutrophils # (Auto) 7.3, Lymphocytes # (Auto) 3.8, Monocytes # (Auto) 0.8, Eosinophils # (Auto) 0.2, Basophils # (Auto) 0.0, Immature Granulocyte # (Auto) 0.1 SHANNON RIVERA DO Apr 19, 2023 08:45
[2023-04-19] MEDS ORDERED: IBUP-1780 PO (08:46)
[2023-04-19] MEDS ORDERED: FERR325T24 PO (08:46)
--- NOTE | 2023-04-19 08:48 | Discharge Summary ---
Discharge Summary Hospital Course Problems Reviewed?: Yes Hospital Course Date of Admission: Apr 17, 2023 at 13:38 Admission Diagnosis : [facility] Phys[facility] [place] Date of Discharge: 04/19/23 Discharge Diagnosis: Status post Hospital Course: Patient was admitted for labor delivered a liveborn and was discharged home on day #2 Labs and Pending Lab Test: Laboratory Tests 04/19/23 07:05: White Blood Count 12.1H, Red Blood Count 4.16, Hemoglobin 10.7L, Hematocrit 33L, Mean Corpuscular Volume 78L, Mean Corpuscular Hemoglobin 26, Mean Corpuscular Hemoglobin Concent 33, Red Cell Distribution Width 14.5, Platelet Count 159, Mean Platelet Volume 10.0, Immature Granulocyte % (Auto) 1, Neutrophils (%) (Auto) 60, Lymphocytes (%) (Auto) 31, Monocytes (%) (Auto) 6, Eosinophils (%) (Auto) 2, Basophils (%) (Auto) 0, Neutrophils # (Auto) 7.3, Lymphocytes # (Auto) 3.8, Monocytes # (Auto) 0.8, Eosinophils # (Auto) 0.2, Basophils # (Auto) 0.0, Immature Granulocyte # (Auto) 0.1 Home Meds Active Ibuprofen 800 Mg Tablet 800 Mg PO Q8H PRN Take 1 tablet every 8 hours for pain Ferosul (Ferrous Sulfate) 325 Mg (65 Mg Iron) Tablet 325 Mg PO DAILY Take 1 tablet daily Reported Sertraline HCl 50 Mg Tablet 50 Mg PO Gummies (Snc822/FA/Omega3/Dha/Fish Oil) 1 Each Tab.chew 2 Each PO DAILY Activity: Activity as Tolerated Discharge Diet: Regular Diet Symptoms to Report to : Pain Increased, Fever Over 101 Degrees F, Vaginal Bleeding Increase For Any Problems or Questions: Contact Your Physician Bathing Instructions: Shower Discharge Physical Examination Allergies: Coded Allergies: latex (Verified Allergy, Unknown, 09/04/18) Vitals & I&Os Vital Signs Date Time Temp Pulse Resp B/P (MAP) Pulse Ox O2 Delivery O2 Flow Rate FiO2 04/18/23 20:50 36.5 59 18 111/56 (74) 98 Room Air Discharge Summary Date of Admission Apr 17, 2023 at 13:38 Date of Discharge Supervisory-Addendum Brief Verification & Attestation Participated in pt care: history, MDM, physical Personally performed: exam, history, MDM, supervision of care Care discussed with: Medical Student Procedures: n/a Results interpretation: Verified all documentation This patient was seen and examined by SHANNON Shelley DO Apr 19, 2023 08:48
[2023-04-19] MEDS ORDERED: RHO(D) IMMUNE GLOBULIN 300 MCG/2 ML SYRINGE ONE (11:54)
== END 2023-04-19 13:15 | disposition home or self-care (01) | DRG 807 ==
LOC: LDRP 13:38
PROVIDERS: ADMIT Obstetrics & Gynecology; ATTEND Obstetrics & Gynecology
PROC: 10907ZC Drainage of Amniotic Fluid, Therapeutic from Products of Conception, Via Natural or Artificial Opening (ICD-10-PCS; 2023-04-17)
PROC: 10E0XZZ Delivery of Products of Conception, External Approach (ICD-10-PCS; principal; 2023-04-18)
DX: O99.824 Streptococcus B carrier state complicating childbirth (principal); Z37.0 Single live birth; Z3A.39 39 weeks gestation of pregnancy
CPT/HCPCS: 36415; 83033; 85025; 86780; 86850; 86900; 86901

== ENCOUNTER 2023-05-25 05:31 | Outpatient (CLI) | payer MEDICAID ==
[~2023-05-25] VITALS: Ht 167.7 cm; Wt 70.9 kg
[~2023-05-25 05:31] MED LIST changes: +FERR325T24 PO; +IBUP-1780 PO
== END 2023-05-26 12:45 | disposition home or self-care (01) ==
LOC: PREOP 05:31
PROVIDERS: ATTEND Surgery
DX: Z01.818 Encounter for other preprocedural examination (principal)

== ENCOUNTER 2023-06-01 14:26 | Day surgery (SDC) | payer MEDICAID ==
[~2023-06-01] VITALS: Ht 167.7 cm; Wt 70.9 kg
[2023-06-01] VITALS (12 sets, daily range): BP systolic 106–141; BP diastolic 66–97
[2023-06-01] MEDS ORDERED: morphine INJ 10 MG/ML 1ML (SYR OR VIAL) IVP PRN ×2 (14:30)
[2023-06-01] MEDS ORDERED: ACETAMINOPHEN 325 MG TABLET PO PRN (14:30)
[2023-06-01] MEDS ORDERED: oxyCODONE/ACETAMINOPHEN 5/325MG TABLET PO PRN (14:30)
[2023-06-01] MEDS ORDERED: ONDANSETRON INJECTION 4 MG/2 ML (SDV) IVP PRN ×2 (14:30→17:15)
--- NOTE | 2023-06-01 14:30 | Progress Note-Pre Operative ---
Pre-Operative Progress Note Date of Available H&P: Jun 01, 2023 Date H&P Reviewed: Jun 01, 2023 Time H&P Reviewed: 14:15 History & Physical: No changes noted Pre-Operative Diagnosis: sx left inguinal hernia PENNY PERKINS MD Jun 01, 2023 14:30
[2023-06-01] MEDS ORDERED: HYDR-3817 PO (14:31)
--- NOTE | 2023-06-01 14:32 | Discharge Inst-Surgical ---
D/C Lap Instructions-GREGORIO New, Converted, or Re-Newed RX: RX on Chart Follow Up Appt in 2 weeks Activity as tolerated No driving for 24 hours No driving while on pain medications Incentive Spirometry use every 2 hours while awake Regular Diet Symptoms to Report: Fever over 101 degree F, Nausea/Vomiting Infection Signs and Symptoms to report: Increased redness, Foul odor of wound, Increased drainage Bathing instructions: May shower Operative Area Clean/Dry; Keep incision clean/dry If any problems/questions: Contact your physician or go to Emergency Room PENNY PERKINS MD Jun 01, 2023 14:31
[2023-06-01] MEDS ORDERED: ceFAZolin INJECTION 2,000 MG in NS (IVPB) 50 ML 50 ML IV ONE (14:45)
[2023-06-01] MEDS: LACTATED RINGERS 1,000 ML 1,000 ML IV PRN ×2 (14:50→16:45)
[2023-06-01] MEDS ORDERED: LIDOCAINE PF 2% 5 ML VIAL ONE (14:58)
[2023-06-01] MEDS ORDERED: MIDAZOLAM INJ 2 MG/2 ML VIAL ONE (14:58)
[2023-06-01] MEDS ORDERED: proPOfol INJECTION 200 MG/20 ML VIAL IV ONE (14:58)
[2023-06-01] MEDS ORDERED: ROCURONIUM 50 MG/5 ML VIAL IV ONE (14:58)
[2023-06-01] MEDS ORDERED: GLYCOPYRROLATE INJ 0.2 MG/ML 2 ML VIAL ONE (14:58)
[2023-06-01] MEDS ORDERED: ONDANSETRON INJECTION 4 MG/2 ML (SDV) ONE (14:58)
[2023-06-01] MEDS ORDERED: dexAMETHasone INJ 10 MG/ML 1 ML VIAL ONE (14:58)
[2023-06-01] MEDS ORDERED: fentaNYL INJECTION 100 MCG/2 ML VIAL ONE (14:58)
[2023-06-01] MEDS ORDERED: LIDOCAINE/EPI 1%-1:200,000 (XYLOCAINE) 30 ML VIAL ONE (15:51)
[2023-06-01] MEDS ORDERED: PROMETHAZINE INJ 25 MG/ML VIAL ONE (16:15)
[2023-06-01] MEDS ORDERED: SUCCINYLCHOLINE INJ 20 MG/1 ML 10 ML VIAL ONE (16:21)
[2023-06-01] MEDS ORDERED: SEVOFLURANE (ULTANE) 15 ML INHAL SOLN ONE (16:24)
[2023-06-01] MEDS ORDERED: LIDOCAINE/EPI 1%-1:200,000 (XYLOCAINE) 30 ML VIAL INJ ONE (16:31)
[2023-06-01] MEDS ORDERED: SUGAMMADEX INJ 100 MG/ML 5 ML VIAL IV ONE ×2 (16:51→16:53)
--- NOTE | 2023-06-01 16:59 | Progress Note-Post Operative ---
Post-Operative Progess Note Surgeon (s)/Fuel Injection Servicer (s) Surgeon PENNY PERKINS MD Fuel Injection Servicer: lisa garcia [employer] Pre-Operative Diagnosis sx left inguinal hernia Post-Operative Diagnosis left direct inguinal hernia Procedure & Operative Findings Date of Procedure 06/01/23 Procedure Performed/Findings laparoscopic left inguinal hernia repair with mesh. Anesthesia Type get Estimated Blood Loss Estimated blood loss (mL): minimal Specimens/Packing Specimens Removed none PENNY PERKINS MD Jun 01, 2023 16:59
--- NOTE | 2023-06-01 17:09 | Anesthesia-General Post-Op ---
General Patient Condition Mental Status/LOC: Same as Preop Cardiovascular: Satisfactory Nausea/Vomiting: Absent Respiratory: Satisfactory Pain: Controlled Complications: Absent Post Op Complications Complications None Follow Up Care/Instructions Patient Instructions None needed. Anesthesia/Patient Condition Patient Condition Patient is doing well, no complaints, stable vital signs, no apparent adverse anesthesia problems. No complications reported per nursing. AUGUSTUS CHOU CRNA Jun 01, 2023 17:09
[2023-06-01] MEDS ORDERED: morphine INJ 10 MG/ML 1ML (SYR OR VIAL) ONE (17:12)
[2023-06-01] MEDS ORDERED: MEPERIDINE INJ 50 MG/ML VIAL ONE (17:13)
[2023-06-01] MEDS ORDERED: MEPERIDINE INJ 50 MG/ML VIAL IVP ONE (17:15)
[2023-06-01] MEDS ORDERED: fentaNYL INJECTION 100 MCG/2 ML VIAL IVP ONE (17:15)
[2023-06-01] MEDS ORDERED: morphine INJ 10 MG/ML 1ML (SYR OR VIAL) IVP ONE (17:15)
--- NOTE | 2023-06-02 00:33 | OPERATIVE REPORT ---
DATE OF SERVICE: 06/01/2023 ATTENDING CHANGE OF ADDRESS CLERK: [facility]. PREOPERATIVE DIAGNOSIS: Symptomatic reducible left inguinal hernia. POSTOPERATIVE DIAGNOSIS: Left direct inguinal hernia. PROCEDURE: Laparoscopic left inguinal hernia repair with mesh. SURGEON: Penny Perkins MD CORE CLEANER: Aleksey Melissa APRN ANESTHESIA: General endotracheal. ESTIMATED BLOOD LOSS: Minimal. FINDINGS: Left direct inguinal hernia. DISPOSITION: The patient tolerated the procedure well. INDICATIONS: The patient is a 28-year-old female who is approximately 6 weeks. She reports that during her , she developed a significant amount of pain in the left inguinal region. She states that approximately 3 weeks ago, she was doing the physical activity and felt a pop sensation in the left inguinal region and since that time, this has become persistently painful. She was seen in the office and found to have a reducible left inguinal hernia; however, tender to palpation. She is otherwise eating well and having normal bowel movements. DESCRIPTION OF PROCEDURE: The patient was brought to the operating room, laid supine on the table. After adequate IV pain and sedative medications and general endotracheal intubation, the abdomen was prepped and draped in standard surgical fashion. A 0.5% Marcaine with epinephrine was used to anesthetize the overlying skin in the infraumbilical rim and a crescent-shaped skin incision made using a #15 blade. The abdominal wall was retracted anteriorly using a sharp towel clamp and a Veress needle inserted with low opening pressure of 0 mmHg and the abdomen was then insufflated to 15 mmHg pressure. The Veress needle removed and a 10 mm trocar placed followed by a 10 mm 45-degree angle laparoscope visualized the peritoneal cavity. A 4-quadrant abdominal exploration was performed. There was a small left direct inguinal hernia. There was no right inguinal hernia component. The remainder of the omentum and small bowel appeared normal. Under direct visualization, we then proceeded to place bilateral 5 mm ports after the skin and peritoneal lining were anesthetized using 0.5% Marcaine with epinephrine and transverse skin incision was made using a #15 blade. The patient was then placed in Trendelenburg position. We then proceeded to open up the peritoneal lining starting laterally towards the conjoined tendon and inguinal ligament. This was done using a Sonicision. We then proceeded medially until Javy's ligament was identified. We then proceeded with inferior dissection encompassing the hernia sac. A medium size 3DMax polypropylene mesh was then placed in the inguinal region and tacked to Javy's ligament medially with an AbsorbaTack into the inguinal ligament laterally. The peritoneal lining was then placed over the mesh and a few absorbable tacks placed to hold this in place with visualization of good hemostasis. The 10 mm port site fascia and peritoneum were then closed under direct visualization using a Kyree-Ken device and 0 Vicryl suture. The abdomen was then desufflated and remaining ports removed. All skin incisions were closed using 4-0 Monocryl running subcuticular sutures. Wounds were then cleaned and covered with Dermabond. The patient tolerated the procedure well. We will start IV and oral pain medication as well as a clear liquid diet. Once she is tolerating clears, has good pain control with oral pain medications, ambulating well, we will discharge her home where she will be instructed to do no heavy lifting or exertion absolutely for the first 2 weeks and then slowly incorporate some lifting and exertion in a gradual stepwise fashion and once she reaches 6 weeks from the surgery date she then does not have any restrictions. Job ID: [id number] DocumentID: [id number] Dictated Date: 06/01/2023 17:06:30 [place] Carpenter Date: 06/02/2023 00:31:00 Dictated By: PENNY PERKINS MD
== END 2023-06-01 19:30 ==
LOC: SDC 14:26
PROVIDERS: ATTEND Surgery
DX: K40.90 Unilateral inguinal hernia, without obstruction or gangrene, not specified as recurrent (principal)
CPT/HCPCS: 49650; 84703; 87081; C1781